=== PATIENT | female | born 1955 | race Caucasian/White ===

== ENCOUNTER 2016-06-14 20:41 | Emergency (ER) ==
[2016-06-14 20:48] VITALS: BP 157/88; TEMP 100.1; BMI 42.5
[2016-06-14 21:09] LABS: FLU INTERNAL QC INTERNAL QC VALID; RAPID FLU A NEGATIVE (NEGATIVE); RAPID FLU B NEGATIVE (NEGATIVE)
--- NOTE | 2016-06-14 21:16 | ED.PDOC ---
[id number] 6d flu symptoms with body aches, fever and cough--exposed to flu-- Time Seen by Physician: 20:45 Information Source: Patient Exam Limitations: No limitations Nursing and Triage Documentation Reviewed and Agree: Yes Respiratory Complaint Exam - Respiratory Complaint/Exam Onset/Duration: 2 days Symptoms Are: Still present Timing: Intermittent Initial Severity: Mild Current Severity: Moderate Location: Chest Character: Reports: Non-productive cough Aggravating: Reports: URI Alleviating: Reports: None Associated Signs and Symptoms: Reports: Fever, URI, Nasal congestion, Sore throat. Denies: Rapid breathing, Dyspnea, Chills, Chest pain, Pleuritic chest pain, Wheezing, Hemoptysis, Dizziness, Calf pain, Calf swelling, Edema, Hoarseness, Sinus discomfort, Vomiting, Weight loss, Decreased oral intake, Increased thirst, Increased appetite, Increased urination Related History: Reports: Similar episode History of Healthcare-Acquired Pneumonia: No Related Surgical History: Reports: None Pseudomonas Risk Factors: Reports: None Tuberculosis Risk Factors: Reports: None Status Asthmaticus Risk Factors: Reports: None Home Oxygen Use: No Recent Stress Test: No Recent Echo/LV Function: No Current Antibiotic Use: No Current Asthma Medication Use: No Respiratory Distress: None Inadequate Respiratory Effort: No Dysphagia Present: No Stridor Present: No JVD Present: No Accessory Muscle Use: No Retractions: Not Present Diminished Breath Sounds: No Sinus Tenderness: None Grunting Respirations: No Kussmaul Respirations: No Differential Diagnoses: URI, Influenza Review of Systems - Review Of Systems Constitutional: Reports: Fever Eyes: Reports: No symptoms Ears, Nose, Mouth, Throat: Reports: Throat pain Respiratory: Reports: Cough Cardiac: Reports: No symptoms GI: Reports: No symptoms : Reports: No symptoms Musculoskeletal: Reports: No symptoms Skin: Reports: No symptoms Neurological: Reports: No symptoms Endocrine: Reports: No symptoms Hematologic/Lymphatic: Reports: No symptoms All Other Systems: Reviewed and Negative Past Medical History - Past Medical History Endocrine: Reports: Unknown Cardiovascular: Reports: Unknown Respiratory: Reports: Unknown Hematological: Reports: Unknown Gastrointestinal: Reports: Unknown Genitourinary: Reports: Unknown Neuro/Psych: Reports: Unknown Musculoskeletal: Reports: Unknown Cancer: Reports: Unknown Last Menstrual Period: na - Surgical History General Surgical History: Reports: Unknown - Family History Family History: Reports: Unknown - Social History Smoking Status: Former smoker Hx Substance Use: No Alcohol Screening: Occasionally Lives: With family - Immunizations Tetanus Shot up to Date: No Physical Exam - Physical Exam Appearance: Well-appearing, No pain distress, Well-nourished Eyes: DEIDRE, EOMI, Conjunctiva clear ENT: Rhinorrhea Neck: Supple Respiratory: Rhonchi Cardiovascular: RRR, Pulses normal, No rub, No murmur GI/: Soft, Nontender, No masses, Bowel sounds normal, No Organomegaly Musculoskeletal: Normal strength, ROM intact, No edema, No calf tenderness Skin: Warm, Dry, Normal color Neurological: Sensation intact Psychiatric: Affect appropriate Critical Care Note - Critical Care Note Total Time (mins): 0 Course - Course Orders, Labs, Meds: Lab Review 06/14/16 20:50 Influenza A (Rapid) Negative Influenza B (Rapid) Negative Orders Category Date Time Status MOLECULAR GROUP A STREP Stat LAB 06/14/16 20:50 Results RAPID FLU A/B Stat LAB 06/14/16 20:50 Completed STREP SCREEN Stat LAB 06/14/16 20:50 Results Vital Signs: Temp Pulse Resp BP Pulse Ox 06/14/16 20:42 100.1 F H 95 H 20 157/88 H 95 Departure - Departure Time of Disposition: 21:16 Disposition: HOME SELF-CARE Discharge Problem: URI (upper respiratory infection) Qualifiers: URI type: unspecified viral URI Qualifier Code: (J06.9) Acute upper respiratory infection, unspecified Acute bronchitis Qualifiers: Bronchitis organism: unspecified organism Qualifier Code: (J20.9) Acute bronchitis, unspecified Instructions: Upper Respiratory Infection (ED) Condition: Good Pt referred to PMD for follow-up: Yes Additional Instructions: zpack...tessalon perles 200mg tid prn cough..tamiflu 75mg bid x 5 days--fluids - -rest--recheck in 72hrs if not bettter Allergies/Adverse Reactions: Allergies cefprozil [From Cefzil] Allergy (Severe, Verified 06/14/16 20:53) Anaphylaxis Cephalosporins Adverse Reaction (Verified 06/14/16 20:53) Home Medications: Ambulatory Orders 1 [No Reported Medications] 06/14/16 Disposition Discussed With: Patient
== END 2016-06-14 21:26 | disposition home or self-care (01) ==
LOC: ED 20:41
DX: J06.9 Acute upper respiratory infection, unspecified (principal); J20.9 Acute bronchitis, unspecified
CPT/HCPCS: 87651; 87804; 87880; 99283

== ENCOUNTER 2017-01-21 16:48 | Outpatient (CLI) ==
[2017-01-21 16:56] LABS: BASOPHILS # (AUTO) 0.1 K/uL (0-0.2); BASOPHILS % (AUTO) 0.5 % (0.0-3.0); EOSINOPHILS # (AUTO) 0.3 K/ul (0.0-0.7); EOSINOPHILS % (AUTO) 3.5 % (0.0-7.0); HEMATOCRIT 40.6 % (37.0-47.0); HEMOGLOBIN 13.3 g/dl (12.0-16.0); IMMATURE GRANULOCYTE % (AUTO) 0.2 % (0.0-5.0); LYMPHOCYTES # (AUTO) 2.9 K/uL (0.60-3.4); LYMPHOCYTES % (AUTO) 31.8 (10.0-50.0); MEAN CORPUSCULAR HEMOGLOBIN 27.7 pg (27.0-31.0); MEAN CORPUSCULAR HGB CONC 32.8 (31.8-35.4); MEAN CORPUSCULAR VOLUME 84.6 fl (81.0-99.0); MONOCYTES # (AUTO) 0.7 K/uL (0.4-2.0); MONOCYTES % (AUTO) 7.1 (0-10); NEUTROPHILS # (AUTO) 5.2 K/ul (2.0-6.9); NEUTROPHILS % (AUTO) 56.9; PLATELET COUNT 267 10^3/uL (140-440); WHITE BLOOD COUNT 9.13 K/ul (4.6-10.2)
[2017-01-21 17:35] LABS: ALBUMIN 3.7 g/dL (3.4-5.0); ALBUMIN/GLOBULIN RATIO 0.97; ANION GAP 14.1; BILIRUBIN,TOTAL 0.28 mg/dL (0.00-1.20); BUN/CREATININE RATIO 19.17; CALCIUM 9.6 mg/dL (8.2-10.2); CREATININE 0.73 mg/dL (0.60-1.30); POTASSIUM 4.1 mmol/L (3.5-5.10); TOTAL PROTEIN 7.5 g/dL (6.4-8.2)
== END 2017-01-21 16:49 | disposition home or self-care (01) ==
LOC: LAB 16:48
PROVIDERS: ATTEND Nurse Practitioner Family
DX: F41.9 Anxiety disorder, unspecified (principal)
CPT/HCPCS: 36415; 80053; 84439; 84443; 85025

== ENCOUNTER 2017-01-25 12:41 | Outpatient (CLI) ==
[2017-01-25 15:58] LABS: CHOL/HDL RATIO 3.9 (4.5-5.5)
== END 2017-01-25 12:42 | disposition home or self-care (01) ==
LOC: LAB 12:41
PROVIDERS: ATTEND Nurse Practitioner Family
DX: E75.6 Lipid storage disorder, unspecified (principal)
CPT/HCPCS: 36415; 80061

== ENCOUNTER 2017-01-26 10:21 | Outpatient (CLI) ==
--- NOTE | 2017-01-27 10:39 | MAMMO ---
EXAM: Digital screening mammogram with 3-D tomosynthesis and CAD HISTORY: Screening mammogram COMPARISON: Left breast diagnostic mammogram and ultrasound 06/26/2015 and screening mammogram 2015 FINDINGS: Bilateral CC and MLO views of the breasts were performed digitally and demonstrate scatter ed fibroglandular breast density. There is a round nodule in the right breast in the area of increase d density. The left breast parenchyma demonstrates no definitive nodule or abnormality on tomosynthe sis. IMPRESSION: The central right breast nodule RECOMMENDATION: Diagnostic right breast mammogram and ultrasound BIRADS category 0: Needs further evaluation
== END 2017-01-26 10:22 | disposition home or self-care (01) ==
LOC: RAD 10:21
PROVIDERS: ATTEND Nurse Practitioner Family
DX: R92.8 Other abnormal and inconclusive findings on diagnostic imaging of breast (principal)
CPT/HCPCS: 77067

== ENCOUNTER 2017-02-01 10:24 | Outpatient (CLI) | payer OTHER ==
--- NOTE | 2017-02-01 11:24 | MAMMO ---
EXAM: Right digital diagnostic mammogram History: Right breast nodule. Comparison: Bilateral mammogram 01/26/2017 Findings: Right breast density is scattered. CAD was reviewed by the radiologist. Additional spot c ompression views of the right breast confirm right breast nodule in question. There are no suspicious microcalcifications. Impression: Indeterminate right breast nodule. Recommend further evaluation with right breast ultra sound. BIRADS 0
--- NOTE | 2017-02-01 11:38 | US ---
EXAM: Right breast ultrasound. History: Right breast nodule. Technique: Multiple sonographic images through the right breast were obtained. Color duplex Doppler was used to interrogate vascular flow. Findings: At 9 o'clock 3 cm from nipple, there are a few small benign cysts with the largest measurin g 4 mm. These probably correlate with mammography. Impression: Benign right breast cysts. Recommend return to routine screening mammography schedule. BIRADS 2
== END 2017-02-01 10:25 | disposition home or self-care (01) ==
LOC: RAD 10:24
PROVIDERS: ATTEND Nurse Practitioner Family
DX: R92.8 Other abnormal and inconclusive findings on diagnostic imaging of breast (principal)

== ENCOUNTER 2017-04-16 16:28 | Outpatient (CLI) ==
--- NOTE | 2017-04-16 16:47 | DI ---
EXAM: Three views of the thoracic spine HISTORY: Back pain. COMPARISON: None FINDINGS: There is no acute compression fracture or subluxation. There is multilevel scattered degen erative change with osteophyte formation and disc space narrowing. There is no lytic or blastic lesi on. The soft tissues are normal. IMPRESSION: There is scattered degenerative disease of the thoracic spine.
== END 2017-04-16 16:29 | disposition home or self-care (01) ==
LOC: LAB 16:28
PROVIDERS: ATTEND Nurse Practitioner Family
DX: M54.6 Pain in thoracic spine (principal); E03.9 Hypothyroidism, unspecified
CPT/HCPCS: 36415

== ENCOUNTER 2017-06-24 12:20 | Outpatient (CLI) | END 2017-06-24 12:21 | disposition home or self-care (01) | LOC: FCC-LAB 12:20 | PROVIDERS: ATTEND Nurse Practitioner Family | DX: F32.9 Major depressive disorder, single episode, unspecified (principal); E03.9 Hypothyroidism, unspecified | CPT/HCPCS: 36415; 80053; 80061; 84439; 84443; 85025 ==

== ENCOUNTER 2017-08-30 08:29 | Emergency (ER) ==
[2017-08-30 08:33] VITALS: BP 166/96; TEMP 98.9; BMI 44.2
[2017-08-30] MEDS ORDERED: DUONEB NEB STA (08:44)
--- NOTE | 2017-08-30 09:03 | ED.PDOC ---
General ED Provider: Dr. ADDY ALVAREZ MD Chief Complaint: Respiratory Complaint Stated Complaint: shortness of breath Time Seen by Physician: 08:50 Mode of Arrival: Wheelchair Information Source: Patient Exam Limitations: No limitations Primary Care Provider: WHIT CASILLAS Referred to ED by: Other Nursing and Triage Documentation Reviewed and Agree: Yes Reviewed sepsis parameters & appropriate labs ordered?: Yes (not septic) System Inflammatory Response Syndrome: Not Applicable Sepsis Protocol: For patient's 13 years and over: Temp is 96.8 and below OR 101 and greater Pulse >90 BPM Resp >20/minute Acutely Altered Mental Status Are patient's symptoms suggestive of a new infection, such as: -Pneumonia -Skin, Soft Tissue -Endocarditis -UTI -Bone, Joint Infection -Implantable Device -Acute Abdominal Infection -Wound Infection -Meningitis -Blood Stream Catheter Infection -Unknown Respiratory Complaint Exam - Asthma Complaint/Exam Onset/Duration: one hour Symptoms Are: Still present Timing: Intermittent Initial Severity: Mild Current Severity: Moderate Character: Reports: Non-productive cough Aggravating: Reports: Allergens Alleviating: Reports: Steroids Related History: Reports: Similar episode (treated 2 weeks ago after mold exposuer) Status Asthmaticus Risk Factors: Reports: Recent steriods Review of Systems - Review Of Systems Constitutional: Reports: No symptoms Eyes: Reports: No symptoms Ears, Nose, Mouth, Throat: Reports: No symptoms Respiratory: Reports: Cough, Short of air Cardiac: Reports: No symptoms GI: Reports: No symptoms : Reports: No symptoms Musculoskeletal: Reports: No symptoms Skin: Reports: No symptoms Neurological: Reports: No symptoms Endocrine: Reports: No symptoms Hematologic/Lymphatic: Reports: No symptoms All Other Systems: Reviewed and Negative Past Medical History - Past Medical History Endocrine: Reports: Unknown Cardiovascular: Reports: Unknown Respiratory: Reports: Bronchitis, Unknown Hematological: Reports: Unknown Gastrointestinal: Reports: Unknown Genitourinary: Reports: Unknown Neuro/Psych: Reports: Unknown Musculoskeletal: Reports: Unknown Cancer: Reports: Unknown Last Menstrual Period: n/a - Surgical History General Surgical History: Reports: Unknown - Family History Family History: Reports: Unknown - Social History Smoking Status: Former smoker Hx Substance Use: No Alcohol Screening: Occasionally Physical Exam - Physical Exam Appearance: Ill-appearing Ill-appearing: Mild Pain Distress: None Eyes: DEIDRE, EOMI, Conjunctiva clear ENT: Ears normal, Nose normal, Oropharynx normal Neck: Supple Respiratory: Breath sounds clear Cardiovascular: RRR, Pulses normal, No rub, No murmur GI/: Soft, Nontender, No masses, Bowel sounds normal, No Organomegaly Musculoskeletal: Normal strength, ROM intact, No edema, No calf tenderness Skin: Warm, Dry, Normal color Neurological: Sensation intact, Motor intact, Reflexes intact, Cranial nerves intact, Alert, Oriented Re-Evaluation - Re-Evaluation Time of Re-Evaluation: 09:30 (feeling better 99%) Status: Improved Vital Signs Stable: Yes Lungs: Clear Skin: Warm and Dry CV: RRR Critical Care Note - Critical Care Note Total Time (mins): 0 Course - Course Hematology/Chemistry: 08/30/17 08:50 08/30/17 08:50 Orders, Labs, Meds: Lab Review 08/30/17 08/30/17 08:50 08:50 WBC 11.82 H RBC 4.60 Hgb 12.9 Hct 39.5 MCV 85.9 MCH 28.0 MCHC 32.7 RDW Coeff of Derick 13.1 Plt Count 256 Immature Gran % (Auto) 0.5 Neut % (Auto) 65.1 Lymph % (Auto) 23.5 [place] % (Auto) 7.5 Eos % (Auto) 3.0 Baso % (Auto) 0.4 Immature Gran # (Auto) 0.1 Neut # (Auto) 7.7 H Lymph # (Auto) 2.8 [place] # (Auto) 0.9 Eos # (Auto) 0.4 Baso # (Auto) 0.1 Sodium 139 Potassium 3.8 Chloride 104 Carbon Dioxide 25 Anion Gap 13.8 BUN 12 Creatinine 0.73 Estimated GFR (MDRD) 81.00 BUN/Creatinine Ratio 16.43 Glucose 105 Calcium 8.8 Iron 36 L TIBC 305 % Saturation 12 Unsat Iron Binding 269 Total Bilirubin 0.5 AST 13 L ALT 13 Alkaline Phosphatase 102 Total Protein 7.3 Albumin 3.4 Globulin 3.9 Albumin/Globulin Ratio 0.87 Orders Category Date Time Status NEBULIZER TREATMENT Stat CARDIO 08/30/17 08:44 Completed CBC W/ AUTO DIFF Stat LAB 08/30/17 08:50 Completed COMPREHENSIVE METABOLIC PANEL Stat LAB 08/30/17 08:50 Completed IRON AND TIBC Stat LAB 08/30/17 08:50 Completed Ipratropium/Albuterol Neb [Duoneb] MEDS 08/30/17 08:44 Discontinued 1 vial NEB ONCE STA CXR [CHEST, 2 VIEWS PA & LAT] Stat RADS 08/30/17 08:42 Completed Medications Discontinued Medications Generic Name Dose Route Start Last Admin Trade Name Erica PRN Reason Stop Dose Admin Albuterol/Ipratropium 1 vial 08/30/17 08:44 08/30/17 08:52 Duoneb NEB 08/30/17 08:45 1 vial ONCE STA Administration Vital Signs: Temp Pulse Resp BP Pulse Ox 08/30/17 08:30 98.9 F 93 H 24 166/96 H 93 L pulse ox later 99%, states she feels a lot better Departure - Departure Time of Disposition: 10:10 Disposition: HOME SELF-CARE Discharge Problem: Asthma due to environmental allergies, Anemia, iron deficiency Condition: Good Pt referred to PMD for follow-up: Yes IPMP verified?: No Allergies/Adverse Reactions: Allergies cefprozil [From Cefzil] Allergy (Severe, Verified 08/30/17 08:33) Anaphylaxis Cephalosporins Adverse Reaction (Verified 08/30/17 08:33) Penicillins Adverse Reaction (Verified 08/30/17 08:33) Home Medications: Ambulatory Orders Citalopram Hydrobromide [Celexa] 20 mg PO DAILY 08/17/17
--- NOTE | 2017-08-30 09:22 | DI ---
EXAM: Two views of the chest. History: Short of breath Findings: Heart size is within normal limits. Medial right lower hemithorax opacity. No appreciable pleural fluid and no pneumothorax. No acute osseous abnormalities. Impression: Indeterminate medial right lower hemithorax opacity could represent pericardial fat pad but cannot exclude pneumonia or mass. Recommend further evaluation with contrast enhanced chest CT.
== END 2017-08-30 10:14 | disposition home or self-care (01) ==
LOC: ED 08:29
DX: J45.998 Other asthma (principal); D50.9 Iron deficiency anemia, unspecified
CPT/HCPCS: 36415; 80053; 83540; 83550; 85025; 94640; 99283

== ENCOUNTER 2017-09-22 09:52 | Outpatient (CLI) | payer OTHER ==
--- NOTE | 2017-09-22 10:56 | CT ---
EXAM: CT Chest with and without contrast. HISTORY: Abnormal chest radiograph. COMPARISON: 08/30/2017. TECHNIQUE: Multiple axial images of the chest were obtained prior to and following intravenous admin istration of iodinated contrast, low osmolar. Images were reformatted in the sagittal and coronal pl anes. FINDINGS: A 2.2 x 1.8 x 2.5 cm homogeneous fluid density nodule in the anterior mediastinum on axial image 20 and sagittal image 56 of the postcontrast series is present. Heart size is normal. No per icardial effusion identified. There is prominent right epicardial fat best seen on axial image 35 wh ich accounts for the recent radiographic abnormality. No consolidation, pleural effusion or pneumothorax identified. There is a 0.3 cm right lower lobe no dule on axial image 26. Limited images of the upper abdomen demonstrate multiple fluid density hepatic lesions, with the larg est measuring up to 2.6 cm in the lateral left lobe on axial image 43. Gallbladder is absent.. Osse ous structures are within normal limits for the patient's age IMPRESSION: 1. Prominent epicardial fat which accounts for the recent radiographic abnormality. 2. A 2.2 x 1.8 x 2.5 cm cystic mass in the anterior mediastinum, possibly a thymic cyst. Consider c hest MRI for further evaluation. 3. A 0.3 cm right lower lobe micronodule. Consider follow-up chest CT in 12 months for reassessment . 4. Multiple hepatic cysts.
== END 2017-09-22 09:53 | disposition home or self-care (01) ==
LOC: RAD 09:52
PROVIDERS: ATTEND Nurse Practitioner Family
DX: R93.8 Abnormal findings on diagnostic imaging of other specified body structures (principal)

== ENCOUNTER 2017-09-23 11:35 | Outpatient (CLI) | payer OTHER | END 2017-09-23 11:36 | disposition home or self-care (01) | LOC: LAB 11:35 | PROVIDERS: ATTEND Nurse Practitioner Family | DX: E32.8 Other diseases of thymus (principal); K76.89 Other specified diseases of liver | CPT/HCPCS: 36415; 80074; 82150; 82977; 83690 ==

== ENCOUNTER 2017-10-15 06:45 | Outpatient (CLI) ==
--- NOTE | 2017-10-15 11:27 | NM ---
EXAM: Myocardial perfusion imaging HISTORY: Chest pain COMPARISON: None. TECHNIQUE: Patient was injected 12.1 mCi of Tc99m Sestamibi intravenously while at rest.. Cardiac SPE CT was acquired. Patient was stressed on a treadmill and at peak exercise injected 31 mCi of Tc99m S estamibi intravenously. Another SPECT imaging of the heart was acquired. Gated cardiac study was pe rformed. FINDINGS: Post stress images show normal left ventricular cavity size. There is a focal area of redu tommy perfusion in the mid anterior wall. This shows no reperfusion on delayed imaging. This is most likely breast attenuation artifact. Myocardial perfusion is otherwise homogeneous. There is no evid ence of reversible ischemia. Left ventricular ejection fraction is 81% and wall motion is normal. IMPRESSION: 1. SPECT myocardial imaging shows no evidence of reversible ischemia 2. Breast attenuation artifact mid-anterior wall. 3. Normal cardiac systolic function and normal wall motion.
--- NOTE | 2017-10-15 12:39 | ECHOSTRESS ---
Date of Exam: 10/15/17 Ordering Physician: WHIT CASILLAS APRN Reason for Echo: HTN, CHEST PAIN, FUNCTIONAL MURMUR, STRESS TEST --NO ISCHEMIA M-Mode Normal Adult Results LV Dimensions Normal Adult Results AoV Opening excursions >1.6 LVEDD-base- 3.5-5.8 Ao root dimensions 2.0-3.7 LVESD-base- 3.1-4.6 L. Atrium dimensions 1.9-3.8 Post. Wall thickness 0.8-1.1 IV septum (thickness) 0.7-1.2 Post. Wall excursion 0.72-1.3 Septal motion Systolic motion R. Ventricular cavity 1.5-2.0 LVEF 60% Paradoxical septal wall motion 2-D: NORMAL LEFT VENTRICULAR CONTRACTILITY--RESTING AND POST EXERCISE M-MODE: MV: AV: TV: PV: CHAMBER SIZE: WALL MOTION: NORMAL LEFT VENTRICULAR CONTRACTILITY--RESTING AND POST EXERCISE PERICARDIUM: INTERPRETATION: 1. NORMAL LEFT VENTRICULAR CONTRACTILITY--RESTING AND POST EXERCISE MTDD
--- NOTE | 2017-10-15 12:53 | STECHOSEST ---
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 MURMUR Smoking History: NO Height: 63" Weight: 254 LBS Current Medications: SYNTHROID, LEVOTHYROXINE, CELEXA Resting EKG: SINUS RHYTHM/ NO ACUTE CHANGES Target Heart Rate: 136/160 S-T SEGMENT STAGE MPH/GRADE HEART RATE BPM BLOOD PRESSURE mmhg RHYTHM +/- ELEVATION DEPRESSION SYMPTOMS,COMMENTS At Rest 80 118/68 SR X NONE 1 1.7/10% 123 128/72 SR X NONE 2 2.5/12% 3 3.4/14% 4 4.2/16% 5 5.0/18% Immediately after 148 SR X SHORT OF BREATH Minutes Post Exercise 4:00 88 122/70 SR X NO COMMENTS Minutes Post Exercise Total Time: 4:01 Maximum Heart Rate Reached: 148 BPM Reason for Termination: SHORT OF BREATH 97% Oxygen saturation on room air with exercises Mets 7.0 INTERPRETATION 1. NO EVIDENCE OF ISCHEMIA BY ST-T WAVE 2. NO CHEST PAIN OR CHEST DISCOMFORT 3. BLOOD PRESSURE RESPONSE: NORMAL 4. NO ARRHYTHMIAS NORMAL LEFT VENTRICULAR CONTRACTILITY--RESTING AND POST EXERCISE MTDD
== END 2017-10-15 06:46 | disposition home or self-care (01) ==
LOC: CAR 06:45
PROVIDERS: ATTEND Nurse Practitioner Family
DX: R07.89 Other chest pain (principal); R93.8 Abnormal findings on diagnostic imaging of other specified body structures; I10 Essential (primary) hypertension

== ENCOUNTER 2018-02-22 14:20 | Outpatient (CLI) ==
--- NOTE | 2018-02-23 10:39 | MAMMO ---
EXAM: Bilateral digital screening mammogram (2-D and 3-D) History: Screening Comparison: Bilateral mammogram 01/26/2017 Findings: MLO and CC views of bilateral breasts demonstrate scattered fibroglandular breast parenchy ma. There are no dominant masses, no suspicious microcalcifications and no architectural distortions . CAD was reviewed by the radiologist. Tomosynthesis was performed. Stable benign bilateral breast nodules. Impression: Benign stable mammogram. Recommend followup routine screening mammography in 1 year. BIRADS 2
== END 2018-02-22 14:21 | disposition home or self-care (01) ==
LOC: RAD 14:20
PROVIDERS: ATTEND Family Medicine
DX: Z12.31 Encounter for screening mammogram for malignant neoplasm of breast (principal)
CPT/HCPCS: 77067

== ENCOUNTER 2018-03-10 07:31 | Outpatient (CLI) | END 2018-03-10 07:32 | disposition home or self-care (01) | LOC: CAR 07:31 | PROVIDERS: ATTEND Family Medicine | DX: Z68.42 Body mass index [BMI] 45.0-49.9, adult (principal) | CPT/HCPCS: 93005; 93010 ==

== ENCOUNTER 2018-07-10 07:34 | Outpatient (CLI) | payer OTHER ==
--- NOTE | 2018-07-10 08:30 | DI ---
Exam: Three-view right foot. Date: 07/10/2018. Comparison: None. HISTORY: Right foot pain. FINDINGS: The soft tissues are within normal limits. The mineralization is normal. The calcaneal s pur is present. The bones are intact and the joint spaces are preserved. Impression: No acute osseous abnormality in the right foot. Calcaneal spur.
== END 2018-07-10 07:35 | disposition home or self-care (01) ==
LOC: RAD 07:34
PROVIDERS: ATTEND Nurse Practitioner Family
DX: M79.671 Pain in right foot (principal)

== ENCOUNTER 2018-07-29 11:00 | Outpatient (RCR) ==
--- NOTE | 2018-07-19 08:35 | RS.OPPTEV2 ---
Date of Note: 07/18/18 Visit #: 1 Number of visits approved by Insurance: n/a Date of Evaluation: 07/18/18 Payer Source: Insurance Surgery Performed?: No Treatment Diagnosis: calcaneal spur, R ankle pain in area of achilles, calcaneal bursitis History of Condition/Mechanism of Injury:: pt initially injured R ankle in 2012 stepping in hole and would get better and worse. Prior Level of Function.....Patient was independent with: ADL's, Self Care, Work /Vocation, Caregiving, Ambulation/Mobility, Community Integration/Access Functional Limitations: Standing, Squatting, Ambulation, Community Access/ Integration Current Subjective/complaints:: pt states that she has been hurting more recently which is limiting her ability to walk longer distances. Treatment Side (optional): Right *Precautions: n/a Medical History Medical History: Cancer (skin CA) Surgical History: Cholecystectomy, Tonsillectomy, Hysterectomy Surgical History Comments:: appey Smoking Status: Former smoker Diagnostic Testing/Imaging:: xray of R foot/ankle shows calcaneal spur Hx Home Medications: aleve, zantac, synthroid, vesicare Patient's Goals: decrease pain, be able to walk without limp Pain Assessment - Pain Description Pain Location: R ankle in area of achilles especially at area of insertion Pain Description: Burning, Sharp, Aching Current Pain Intensity: 3 Other Comments regarding Pain:: pt has been off work last 4 days so her pain is not as bad and swelling is less. Functional Outcome Measure LE Functional Scale: 44 - G Codes & Severity Modifier G Codes & Modifier: n/a Source of G Code score: n/a Observation - Observation Inspection: small area of swelling in area of achilles at area of insertion Posture: Forward Head, Rounded Shoulders, Increased Thoracic Kyphosis, Decreased Lumbar Lordosis Handedness: Right Gait - Gait Pattern General Gait Pattern Observation: Antalgic Gait Gait Comments: pt amb with antalgic gait with decreased stance time on RLE. pt also amb with increased lat sway. General Range of Motion: BUE WFL's. BLE WFL's Muscle Strength: BUE grossly 5/5. BLE hip flex 5/5, knee flex/ext 5/5, L ankle DF/PF 5/5, Ankle ROM: Left WFL's Ankle Muscle Strength: Left WFL's - Right Ankle ROM Right DF with Knee extension: 5 Right Plantarflexion: 28 Right Eversion: 19 Right Inversion: 22 Right Ankle/Foot ROM Limitations: Soft Tissue Tightness, Muscle Weakness, Pain - Right Ankle Strength Right Dorsiflexion: 4- Good- Right Plantarflexion: 4- Good- Right Eversion: 4- Good- Right Inversion: 4- Good- Palpation Palpation Findings: Tenderness Comments:: pt with tenderness to palpation R achilles especially at area of insertion Sensation - Sensation Right Upper Extremity: Intact/Normal Left Upper Extremity: Intact/Normal Right Lower Extremity: Intact/Normal Left Lower Extremity: Intact/Normal Balance - Sitting Balance Static Sitting Balance: Normal Dynamic Sitting Balance: Normal - Standing Balance Static Standing Balance: Normal Dynamic Standing Balance: Normal - Treatment Modality: Ultrasound Parameters/Method Applied: 1.5 w/cm2 x 7 mins Treatment Area: R achilles/post ankle Patient Position: Sitting Interventions - Exercise/Activities/Manual Therapy Exercises/Activities: pt performed R ankle isometric DF, PF, inversion, eversion , PF with green t band, towel stretch Manual Therapy: n/a HOME EXERCISE PROGRAM: pt given written HEP including PF, DF, inversion, eversion, PF with green theraband, heel cord stretch - Charges Timed Code Treatment Minutes: 51 Total Treatment Time: 60 Procedures billed for this date of service:: poonam skaggs, ultrasound EVALUATION COMPLEXITY LEVEL EVALUATION COMPLEXITY LEVEL: HISTORY: Low (OA, ), EXAM OF BODY SYSTEMS: Low ( pain, ROM, strength), CLINICAL PRESENTATION: Low, CLINICAL DECISION MAKING: Low Assessment Assessment: pt presents with pain in R ankle in area of achilles with decreased ROM, strength as well as min edema. Patient Education: Home Exercise Program, Education of Plan of Care Rehab Potential: Good Short Term Goals Goal #1: pt independent with initial HEP Goal to be met by: 08/01/18 Goal #2: Improve ROM R ankle to WFL's Goal to be met by: 08/01/18 Goal #3: Decrease edema R ankle Goal to be met by: 08/01/18 Goal #4: Decrease pain R ankle < 3/10 Goal to be met by: 08/01/18 Bacteriology Research Assistant Goals Goal #1: pt amb with decreased antalgic gait pattern Goal to be met by: 08/19/18 Goal #2: pt report decreased pain with working normal shift Goal to be met by: 08/19/18 Plan - Treatment to be Provided Procedures: Therapeutic Exercises, Manual Therapy, Massage, Patient Education Modalities: Ultrasound/Phonophoresis, Cryotherapy, Hot Packs Other:: may benefit from phonophoresis - Treatment Plan Frequency: 2-3 x a week Duration: 4 weeks Dates of Bacteriology Research Assistant Goals: 08/19/18 Expiration date of current Insurance Approval:: n/a - Treatment Code (1) Pain in right ankle Code(s): M25.571 - PAIN IN RIGHT ANKLE AND JOINTS OF RIGHT FOOT Qualifiers: Chronicity: chronic Qualified Code(s): M25.571 - Pain in right ankle and joints of right foot; G89.29 - Other chronic pain (2) Calcaneal bursitis, right Code(s): M77.51 - OTHER ENTHESOPATHY OF RIGHT FOOT (3) Stiffness of right ankle joint Code(s): M25.671 - STIFFNESS OF RIGHT ANKLE, NOT ELSEWHERE CLASSIFIED
--- NOTE | 2018-07-22 14:05 | RS.OPPTDN ---
Subjective Date of Note: 07/21/18 Visit #: 2 Number of visits approved by Insurance: pending Date of Evaluation: 07/18/18 Payer Source: Insurance Treatment Diagnosis: calcaneal spur, R ankle pain in area of achilles, calcaneal bursitis Current Subjective/complaints:: Patient reports pain at the insertion of the right achilles tendon. *Precautions: n/a Pain Assessment - Pain Description Pain Location: right achilles tendon Pain Description: Burning, Sharp, Aching Current Pain Intensity: mild to mod - Treatment Modality: Ultrasound Parameters/Method Applied: [id number] at 1.5w/cm2 to the right achilles tendon prior to EX. Patient Position: Sitting - Heat/Cryotherapy Treatment: Cryotherapy ([id number] to the right achilles tendon following US and EX. Patient in sitting. ) Interventions - Exercise/Activities/Manual Therapy Exercises/Activities: Assisted stretching of the right heel cords and ankle in all direction. Manual resistance for Isometrics x4 directions. Reviewed towel stretch. Also instructed in step stretch and wall/runner's stretch, both for gastroc and soleus. Total minutes of Exercise: 14mins Manual Therapy: Massage along heel cords and gastroc. Total minutes of Manual Therapy: 3mins HOME EXERCISE PROGRAM: pt given written HEP including PF, DF, inversion, eversion, PF with green theraband, heel cord stretch - Charges Timed Code Treatment Minutes: 27mins Total Treatment Time: 42mins Procedures billed for this date of service:: US, EX, CP Assessment: Patient continue to have increased pain and walking and with passive stretch of the right heel cords. 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
--- NOTE | 2018-07-25 13:00 | RS.OPPTDN ---
Subjective Date of Note: 07/25/18 Visit #: 3 Number of visits approved by Insurance: NA Date of Evaluation: 07/18/18 Payer Source: Insurance Treatment Diagnosis: calcaneal spur, R ankle pain in area of achilles, calcaneal bursitis Current Subjective/complaints:: Patient reports an increase in right heel pain at the achilles insersion following last treatment session. States she does not like the cold, but is willing to continue to try US to decrease pain. *Precautions: n/a Pain Assessment - Pain Description Pain Location: Right achilles tendon insersion Pain Description: Aching Current Pain Intensity: mild to mod - Treatment Modality: Ultrasound Parameters/Method Applied: [id number] at 1.5w/cm2 along both sides of the right achilles tendon. Patient Position: Sitting - Heat/Cryotherapy Treatment: Hot Pack ([id number] to the right achilles tendon prior to US. Patient in sitting. ) Interventions - Exercise/Activities/Manual Therapy Exercises/Activities: Assisted stretching of the right heel cords and ankle in all direction. Manual resistance for Isometrics x4 directions. Reviewed HEP and advised patient to do Epsom salt and warm water soaks. Total minutes of Exercise: 14mins Manual Therapy: Massage along heel cords and gastroc. Total minutes of Manual Therapy: 3mins HOME EXERCISE PROGRAM: pt given written HEP including PF, DF, inversion, eversion, PF with green theraband, heel cord stretch - Charges Timed Code Treatment Minutes: 31mins Total Treatment Time: 51mins Procedures billed for this date of service:: HP, US, EX Assessment: Patient consistently working on HEP and has seen some improvement in pain. Patient Education: Home Exercise Program Patient demonstrates compliance with HEP?: Yes Short Term Goals Goal #1: pt independent with initial HEP Goal to be met by: 08/01/18 Progress towards Goal:: Progressing Goal #2: Improve ROM R ankle to WFL's Goal to be met by: 08/01/18 Progress towards Goal:: Progressing Goal #3: Decrease edema R ankle Goal to be met by: 08/01/18 Progress towards Goal:: Progressing Goal #4: Decrease pain R ankle < 3/10 Goal to be met by: 08/01/18 Jail Goals Goal #1: pt amb with decreased antalgic gait pattern Goal to be met by: 08/19/18 Goal #2: pt report decreased pain with working normal shift Goal to be met by: 08/19/18 Plan Dates of Battery Hand Goals: 08/19/18 Expiration date of current Insurance Approval:: 08/19/18 PLAN: Continue modalities and progress exercise to redcue pain and improve patients functional ambulation.
--- NOTE | 2018-07-26 16:40 | RS.OPPTDN ---
Subjective Date of Note: 07/26/18 Visit #: 4 Number of visits approved by Insurance: [id number] Date of Evaluation: 07/18/18 Payer Source: Insurance Treatment Diagnosis: calcaneal spur, R ankle pain in area of achilles, calcaneal bursitis Current Subjective/complaints:: Patient says her pain remains unchanged. She says she no longer has "plantar fasciitis pain," but soreness to the insertion points of the achilles. She says she doesn't really notice any swelling. States she takes Aleve for pain, which helps relieve a little. *Precautions: n/a - Treatment Modality: Ultrasound Parameters/Method Applied: PHONOPHORESIS: Pulsed using hydrocortisone cream @ 20% 0.8 w/cm2 x 14 mins to bilateral achilles insertion points Patient Position: Sitting - Heat/Cryotherapy Treatment: Hot Pack (20 mins surrounding the R achilles tendon in sitting.) Interventions - Exercise/Activities/Manual Therapy Exercises/Activities: Continued passive stretching of the right heel cords and ankle in all direction. Great toe stretching. Manual resistance for Isometrics x4 directions x 2 sets. Reviewed HEP and advised patient to do Epsom salt and warm water soaks. Total minutes of Exercise: 15 Manual Therapy: Massage along heel cords and gastroc. HOME EXERCISE PROGRAM: pt given written HEP including PF, DF, inversion, eversion, PF with green theraband, heel cord stretch - Charges Timed Code Treatment Minutes: 29 Total Treatment Time: 49 Procedures billed for this date of service:: hp, u/s, ex Assessment: Patient admits slight improvement with pain today following session. She is unclear if it is due to having 2 sessions in a row, being off from work, or addition of phonophoresis. No real evidence of swelling noted to the medial aspect of the R foot in which she points out used to be present. She will also be attending PT tomorrow also in which hydrocortisone may be used to further decrease her pain. She rivas all stretching well and continues to work on HEP. 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
--- NOTE | 2018-07-29 16:18 | RS.OPPTDN ---
Subjective Date of Note: 07/29/18 Visit #: 5 Number of visits approved by Insurance: na Date of Evaluation: 07/18/18 Payer Source: Insurance Treatment Diagnosis: calcaneal spur, R ankle pain in area of achilles, calcaneal bursitis Current Subjective/complaints:: Patient reports she has little to no pain at right achilles with working yesterday. Reports treatment seems to be helping her a lot. *Precautions: n/a Pain Assessment - Pain Description Pain Location: right achilles tendon insertion points Current Pain Intensity: mild - Treatment Modality: Ultrasound Parameters/Method Applied: [id number] at 1.5w/cm2 along both side of the achilles tendon with hydrocortisone for phonophoresis prior to EX. Patient Position: Sitting - Heat/Cryotherapy Treatment: Hot Pack ([id number] to the right ankle, achilles tendon prior to US. patient in sitting. ) Interventions - Exercise/Activities/Manual Therapy Exercises/Activities: Manual resistance for isometrics x4 directions and discussion of HEP. Total minutes of Exercise: 4mins Manual Therapy: Massage along heel cords and gastroc with passive stretching of heel cords and plantar fascia. Total minutes of Manual Therapy: 20mins HOME EXERCISE PROGRAM: pt given written HEP including PF, DF, inversion, eversion, PF with green theraband, heel cord stretch - Charges Timed Code Treatment Minutes: 34mins Total Treatment Time: 49mins Procedures billed for this date of service:: HP, US, MT Assessment: Patient responding well to treatment with report of having little to no pain with work yesterday. Patient Education: Home Exercise Program, Activity Modification Patient demonstrates compliance with HEP?: Yes Short Term Goals Goal #1: pt independent with initial HEP Goal to be met by: 08/01/18 Progress towards Goal:: Progressing Goal #2: Improve ROM R ankle to WFL's Goal to be met by: 08/01/18 Progress towards Goal:: Progressing Goal #3: Decrease edema R ankle Goal to be met by: 08/01/18 Progress towards Goal:: Progressing Goal #4: Decrease pain R ankle < 3/10 Goal to be met by: 08/01/18 Progress towards Goal:: Progressing Fpc Goals Goal #1: pt amb with decreased antalgic gait pattern Goal to be met by: 08/19/18 Goal #2: pt report decreased pain with working normal shift Goal to be met by: 08/19/18 Progress towards goal: Progressing Plan Dates of [facility] Goals: 08/19/18 Expiration date of current Insurance Approval:: 08/19/18 PLAN: Continue modalities, manual therapy, and exercise to increase functional activity level.
== END 2018-07-31 23:59 ==
PROVIDERS: ATTEND Nurse Practitioner Family
DX: M77.51 Other enthesopathy of right foot and ankle (principal)

== ENCOUNTER 2018-08-19 11:00 | Outpatient (RCR) ==
--- NOTE | 2018-08-01 16:13 | RS.OPPTDN ---
Subjective Date of Note: 08/01/18 Visit #: 6 Number of visits approved by Insurance: n/a Date of Evaluation: 07/18/18 Payer Source: Insurance Treatment Diagnosis: calcaneal spur, R ankle pain in area of achilles, calcaneal bursitis Current Subjective/complaints:: pt states she noticed the other day that she was walking and did not have any pain. States she feels the PT is helping. *Precautions: n/a Pain Assessment - Pain Description Pain Location: R achilles. Pain Description: Aching Current Pain Intensity: 0 at rest , 2 with walking - Treatment Modality: Ultrasound Parameters/Method Applied: 10 mins at 1.5w/cm2 phonophoresis with hydrocortisone Treatment Area: R achilles (medial and lat side) Patient Position: Sitting Comments: prior to stretching - Heat/Cryotherapy Treatment: Hot Pack Comments:: R ankle, prior to ultrasound x 15 mins Interventions - Exercise/Activities/Manual Therapy Exercises/Activities: pt performed R ankle isometric DF, PF, inversion, eversion. Stretching of R heel cords Manual Therapy: massage to R ankle, with deep tissue massage R post ankle in area of achilles. HOME EXERCISE PROGRAM: pt given written HEP including PF, DF, inversion, eversion, PF with green theraband, heel cord stretch - Charges Timed Code Treatment Minutes: 36 Total Treatment Time: 51 Procedures billed for this date of service:: ultrasound, hot pack, manual therapy Assessment: pt with decreased edema R ankle, with decreased pain in R achilles. pt with decreased tightness in R heel cord. pt has met STG 1, 3, 4. 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
--- NOTE | 2018-08-04 16:16 | RS.OPPTDN ---
Subjective Date of Note: 08/04/18 Visit #: 7 Number of visits approved by Insurance: na Date of Evaluation: 07/18/18 Payer Source: Insurance Treatment Diagnosis: calcaneal spur, R ankle pain in area of achilles, calcaneal bursitis Current Subjective/complaints:: Patient reports a mild area of swelling at the sital lateral achilles tendon insertion. Reports she is doing much better with walking at work. *Precautions: n/a Pain Assessment - Pain Description Pain Location: right achilles tendon insertion Current Pain Intensity: mild - Treatment Modality: Ultrasound Parameters/Method Applied: 14mins total. US at 1.5w/cm2 to each side of the right ankle achilles tendon insersion, 7mins to each side. Patient Position: Sitting - Heat/Cryotherapy Treatment: Hot Pack ([id number] to the right achilles tendon insertion prior to US and MT. Patient in sitting. ) Interventions - Exercise/Activities/Manual Therapy Exercises/Activities: No new additions Manual Therapy: Massage to R ankle, with deep tissue massage along achilles and gastroc muscle group. Passive stretch of plantar fascia. Total minutes of Manual Therapy: 18mins HOME EXERCISE PROGRAM: pt given written HEP including PF, DF, inversion, eversion, PF with green theraband, heel cord stretch - Charges Timed Code Treatment Minutes: 32mins Total Treatment Time: 52mins Procedures billed for this date of service:: HP, US, MT Assessment: Patient reporting improvement with ability to walk for work. Patient demonstrates compliance with HEP?: Yes Short Term Goals Goal #1: pt independent with initial HEP Goal to be met by: 08/01/18 Progress towards Goal:: Met Goal #2: Improve ROM R ankle to WFL's Goal to be met by: 08/01/18 Progress towards Goal:: Partially Met Goal #3: Decrease edema R ankle Goal to be met by: 08/01/18 Progress towards Goal:: Met Goal #4: Decrease pain R ankle < 3/10 Goal to be met by: 08/01/18 Progress towards Goal:: Met Mcfp Goals Goal #1: pt amb with decreased antalgic gait pattern Goal to be met by: 08/19/18 Progress towards goal: Progressing Goal #2: pt report decreased pain with working normal shift Goal to be met by: 08/19/18 Progress towards goal: Progressing Plan Dates of [facility] Goals: 08/19/18 Expiration date of current Insurance Approval:: 08/19/18 PLAN: Continue modalities, manual therapy, and exercise to reduce pain and increase functional gait and activity level.
--- NOTE | 2018-08-08 14:22 | RS.OPPTDN ---
Subjective Date of Note: 08/08/18 Visit #: 8 Number of visits approved by Insurance: [id number] Date of Evaluation: 07/18/18 Payer Source: Insurance Treatment Diagnosis: calcaneal spur, R ankle pain in area of achilles, calcaneal bursitis Current Subjective/complaints:: Patient says her pain is much better. Reports pain continues to be little to none at work. She says she feels she has a little swelling at the medial malleoli. *Precautions: n/a - Treatment Modality: Ultrasound Parameters/Method Applied: phonophoresis using hydrocortisone cream to the R medial/lateral heel cords and at the medial malleoli region. 1.5 w/cm2 continuous, then pulsed 20% 0.6 w/cm2 x 14 mins total. Patient Position: Sitting - Heat/Cryotherapy Treatment: Hot Pack (15 mins to the heel cords in sitting) Interventions - Exercise/Activities/Manual Therapy Exercises/Activities: No new additions Manual Therapy: Massage to R ankle, with deep tissue massage along achilles and gastroc muscle group. Passive stretch of plantar fascia. Total minutes of Manual Therapy: 17 HOME EXERCISE PROGRAM: pt given written HEP including PF, DF, inversion, eversion, PF with green theraband, heel cord stretch - Charges Timed Code Treatment Minutes: 31 Total Treatment Time: 46 Procedures billed for this date of service:: hp, u/s, MT Assessment: Patient experiencing less pain with ambulation and during her shifts at work. In fact, experiencing no pain as of recent. She demo slight swelling at beginning of treatment, which is not present following u/s and MT. Patient remains positive about progress during treatments and compliant with HEP. 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
--- NOTE | 2018-08-12 16:02 | RS.OPPTDN ---
Subjective Date of Note: 08/12/18 Visit #: 9 Number of visits approved by Insurance: [id number] Date of Evaluation: 07/18/18 Payer Source: Insurance Treatment Diagnosis: calcaneal spur, R ankle pain in area of achilles, calcaneal bursitis Current Subjective/complaints:: Patient says she is having pain mostly at the medial portion of the heel. She says therapy sessions continue to be helpful as she has less pain with WBing and walking, but pain seems to have moved slightly and she feels it may be bursitis. *Precautions: n/a - Treatment Modality: Ultrasound Parameters/Method Applied: Phonophoresis using 2.5 hydrocortisone cream continuous @ 3.3 mHz, 1.5 w/cm2 x 8 mins, then pulsed @ 20% 0.6 w/cm2 x 5 mins to the achilles tendon (distally) and just inferior to the medial malleoli. Patient Position: Sitting - Heat/Cryotherapy Treatment: Hot Pack (x 15 mins tothe R arch/heel/achilles in sitting) Interventions - Exercise/Activities/Manual Therapy Exercises/Activities: Reviewed HEP, ice massage. Performed passive stretching for gastroc/soleus, and plantar fascia Manual Therapy: Massage to R ankle, with deep tissue massage along achilles and gastroc muscle group. Passive stretch of plantar fascia. Total minutes of Manual Therapy: 14 HOME EXERCISE PROGRAM: pt given written HEP including PF, DF, inversion, eversion, PF with green theraband, heel cord stretch - Charges Timed Code Treatment Minutes: 28 Total Treatment Time: 43 Procedures billed for this date of service:: hp, u/s, MT Assessment: Patient experiencing less pain overall, but is hoping for more consistent and less intense pain relief. She has pain during u/s at the medial heel aspect very locally, but when depth level was changed to 3.3 mHz, pain went away. 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 Also, strengthening to the R ankle to provide more support.
--- NOTE | 2018-08-15 15:25 | RS.OPPTDN ---
Subjective Date of Note: 08/15/18 Visit #: 10 Number of visits approved by Insurance: 12 Date of Evaluation: 07/18/18 Payer Source: Insurance Treatment Diagnosis: calcaneal spur, R ankle pain in area of achilles, calcaneal bursitis Current Subjective/complaints:: Patient says she can feel her "sore spot." She says she feels less pain overall with ambulation and Wbing and is performing HEP. *Precautions: n/a - Treatment Modality: Ultrasound Parameters/Method Applied: PHONOPHORESIS using 2.5% Hydrocortisone continuous @ 1.5 w/cm2 x 7 mins to the R medial heel region and just inferior to the medial malleoli. Pulsed @ 20% x 5 mins @ 0.6 w/cm2 to same area. - Heat/Cryotherapy Treatment: Hot Pack (15 mins to the R foot (medial arch and malleoli, achilles)) , Cryotherapy Comments:: ice massage to the R medial malleoli/achilles tendon, medial heel x 4 mins Interventions - Exercise/Activities/Manual Therapy Exercises/Activities: Passive stretching to heel cords, plantar fascia, great toe stretching, PROM IV/EV. Manual isometrics 2x5. Reviewed HEP and ice massage. Total minutes of Exercise: 12 Manual Therapy: na HOME EXERCISE PROGRAM: pt given written HEP including PF, DF, inversion, eversion, PF with green theraband, heel cord stretch - Charges Timed Code Treatment Minutes: 30 Total Treatment Time: 45 Procedures billed for this date of service:: hp, u/s, ex, cp Assessment: Patient experiencing less pain in general to the R foot, but is hopeful to have further reduction with using phonophoresis. She demo increased strength with manual resistance and improved flexibility. Patient Education: Home Exercise Program, Education of Plan of Care Patient demonstrates compliance with HEP?: Yes Short Term Goals Goal #1: pt independent with initial HEP Goal to be met by: 08/01/18 Progress towards Goal:: Met Goal #2: Improve ROM R ankle to WFL's Goal to be met by: 08/01/18 Progress towards Goal:: Partially Met Goal #3: Decrease edema R ankle Goal to be met by: 08/01/18 Progress towards Goal:: Met Goal #4: Decrease pain R ankle < 3/10 Goal to be met by: 08/01/18 Progress towards Goal:: Met Rn Allergy Goals Goal #1: pt amb with decreased antalgic gait pattern Goal to be met by: 08/19/18 Progress towards goal: Progressing Goal #2: pt report decreased pain with working normal shift Goal to be met by: 08/19/18 Progress towards goal: Progressing Plan Dates of Rn Allergy Goals: 08/19/18 Expiration date of current Insurance Approval:: 08/19/18 PLAN: Patient to continue with phonophoresis and therex
--- NOTE | 2018-08-19 14:24 | RS.OPPTDN ---
Subjective Date of Note: 08/19/18 Visit #: 11 Number of visits approved by Insurance: 12 Date of Evaluation: 07/18/18 Payer Source: Insurance Treatment Diagnosis: calcaneal spur, R ankle pain in area of achilles, calcaneal bursitis Current Subjective/complaints:: Patient reports increased R distal calf and heel pain. She says she had to walk uphill for [employer] yesterday. She says she knows she has been walking differently on it to relieve pain and has developed compensation habit. She says she is trying to avoid that, but she also has pain when "walking correctly." States she has tenderness to the distal calf also. *Precautions: n/a - Treatment Modality: Ultrasound Parameters/Method Applied: PHONOPHORESIS using Hydrocortisone 2.5 % continuous @ 1.0 w/cm2, 3.3mHz x 12 mins Treatment Area: along achilles and insertion point Patient Position: Sitting - Heat/Cryotherapy Treatment: Hot Pack (distal calf and and medial arch x 15 mins in sitting) Interventions - Exercise/Activities/Manual Therapy Exercises/Activities: passive heel cord stretching with MT Manual Therapy: STM and directional massage for mild swelling intermittently stretching passively and AROM. Total minutes of Manual Therapy: 16 HOME EXERCISE PROGRAM: pt given written HEP including PF, DF, inversion, eversion, PF with green theraband, heel cord stretch - Charges Timed Code Treatment Minutes: 28 Total Treatment Time: 43 Procedures billed for this date of service:: hp, u/s, MT Assessment: Patient presents with increased R foot pain mostly at the distal calf along the achilles tendon and medial heel. She has had to walk uphill yesterday in which she feels is the reason for her symptom increase. She has tenderness to moderate pressure during u/s and MT. Mild swelling noted to the medial malleoli region (just inferiorally). Passive stretching did result in increased motion from when she arrived for her appt today particularly DF. Short Term Goals Goal #1: pt independent with initial HEP Goal to be met by: 08/01/18 Progress towards Goal:: Met Goal #2: Improve ROM R ankle to WFL's Goal to be met by: 08/01/18 Progress towards Goal:: Partially Met Goal #3: Decrease edema R ankle Goal to be met by: 08/01/18 Progress towards Goal:: Met Goal #4: Decrease pain R ankle < 3/10 Goal to be met by: 08/01/18 Progress towards Goal:: Met Correction Goals Goal #1: pt amb with decreased antalgic gait pattern Goal to be met by: 08/19/18 Progress towards goal: Progressing Goal #2: pt report decreased pain with working normal shift Goal to be met by: 08/19/18 Progress towards goal: Progressing Plan 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 She has completed 11 of 12 sessions in which POC ends today. She does not have a scheduled MD visit for follow up. Encourage patient to return to [facility] for further assessment and orders if agreeable.
== END 2018-08-30 23:59 ==
PROVIDERS: ATTEND Nurse Practitioner Family
DX: M77.51 Other enthesopathy of right foot and ankle (principal); M25.571 Pain in right ankle and joints of right foot; G89.29 Other chronic pain; M25.671 Stiffness of right ankle, not elsewhere classified

== ENCOUNTER 2018-09-21 15:31 | Outpatient (CLI) | END 2018-09-21 15:32 | disposition home or self-care (01) | LOC: LAB 15:31 | PROVIDERS: ATTEND Family Medicine | DX: E03.9 Hypothyroidism, unspecified (principal); Z68.42 Body mass index [BMI] 45.0-49.9, adult; Z51.81 Encounter for therapeutic drug level monitoring; Z79.899 Other long term (current) drug therapy | CPT/HCPCS: 36415; 80053; 84443; 85025; 93005; 93010 ==

== ENCOUNTER 2018-10-24 10:38 | Outpatient (CLI) ==
--- NOTE | 2018-10-24 14:20 | DI ---
EXAM: CHEST FRONTAL AND LATERAL VIEWS HISTORY: Bronchitis. COMPARISON: 08/30/2017 FINDINGS / IMPRESSION: Cannot exclude mild infiltrate/pneumonia in the middle lobe or less likely li ngula. Lungs are otherwise clear. No vascular congestion or pleural fluid. No pneumothorax
== END 2018-10-24 10:39 | disposition home or self-care (01) ==
LOC: RAD 10:38
PROVIDERS: ATTEND Family Medicine
DX: J40 Bronchitis, not specified as acute or chronic (principal); R09.02 Hypoxemia
CPT/HCPCS: 36415; 80053; 85025

== ENCOUNTER 2019-11-06 10:58 | Inpatient (IN) ==
[2019-11-06] MEDS ORDERED: SOLU-MEDROL 125 MG IVP STA (11:12)
[2019-11-06] MEDS ORDERED: DUONEB NEB STA ×2 (11:12→12:20)
[2019-11-06] MEDS ORDERED: SODIUM CHLORIDE 500 ML IV STA (11:12)
[2019-11-06] MEDS ORDERED: SODIUM CHLORIDE 1,000 ML IV STA (11:12)
[2019-11-06] MEDS ORDERED: VENTOLIN HFA (PER PUFF-WITH SPACER) IH STA ×2 (11:29→12:53)
[2019-11-06] MEDS ORDERED: ATROVENT HFA INHALER (PER PUFF-WITH SPACER) IH STA ×2 (11:29→13:13)
[2019-11-06 11:39] LABS: HEMATOCRIT 40.1 % (37.0-47.0)
--- NOTE | 2019-11-06 11:42 | ED.PDOC ---
General ED Provider: Dr. OSEAS WAY MD Chief Complaint: Respiratory Complaint Stated Complaint: Increasing SOB and wheezing x worse this AM. Time Seen by Physician: 11:07 Mode of Arrival: Walk-In Information Source: Patient Exam Limitations: No limitations Primary Care Provider: SHAR PINA MD Nursing and Triage Documentation Reviewed and Agree: Yes Does patient meet sepsis criteria?: No If yes, has appropriate treatment been initiated?: No System Inflammatory Response Syndrome: Not Applicable Sepsis Protocol: For patient's 13 years and over: Temp is 96.8 and below OR 101 and greater Pulse >90 BPM Resp >20/minute Acutely Altered Mental Status Are patient's symptoms suggestive of a new infection, such as: -Pneumonia -Skin, Soft Tissue -Endocarditis -UTI -Bone, Joint Infection -Implantable Device -Acute Abdominal Infection -Wound Infection -Meningitis -Blood Stream Catheter Infection -Unknown Respiratory Complaint Exam Shortness of Air Complaint/Exam Onset/Duration: 3 days Symptoms Are: Worse Timing: Constant Initial Severity: Mild Current Severity: Moderate Character: Reports Dyspnea at rest, Dyspnea on exertion and Orthopnea Alleviating: Reports None Associated Signs and Symptoms: Reports Wheezing and Rapid breathing History of Healthcare-Acquired Pneumonia: No Pseudomonas Risk Factors: Reports Chronic Lung Disease Tuberculosis Risk Factors: Reports Smoking (pt smoked for 25 yrs but quit smoking 20 years ago.) Home Oxygen Use: No Respiratory Distress: Moderate Stridor Present: No Tracheal Deviation: No Subcutaneous Emphysema: No Accessory Muscle Use: Yes Retractions: Intercostal Diminished Breath Sounds: No Fatigue: Yes Leg Swelling: No Michelle's Sign Present: No Grunting Respirations: No Differential Diagnoses: Asthma, CHF, Pulmonary Edema, COPD Exacerbation, Pneumonia, Pulmonary Embolism, Bronchitis and Bronchospasm Quality Indicator For Non-Traumatic Chest Pain/Syncope: EKG Performed Quality Indicators For Pneumonia/CAP: SpO2 assessed, Vital signs and Mental status assessed Review of Systems Review Of Systems Constitutional: Reports Sweats Eyes: Reports No symptoms Respiratory: Reports Cough, Short of air and Wheezing; Denies Stridor Cardiac: Reports Palpitations GI: Reports No symptoms : Reports No symptoms Musculoskeletal: Reports No symptoms Skin: Reports No symptoms Neurological: Reports No symptoms Endocrine: Reports Excessive sweating Hematologic/Lymphatic: Reports No symptoms All Other Systems: Reviewed and Negative [facility] Medical History Abnormal Pap smear of cervix Cataract Fuchs' corneal dystrophy Hypothyroidism Squamous cell carcinoma (~2006) Stress incontinence Social History Smoking and tobacco status: Former smoker Passive smoking exposure: No Second hand smoke exposure: No Smoking risk assessment performed: No Alcohol intake: never Substance use type: does not use Counseling given: No Evie/adventism: GNOSTICISM Special evie needs: No Agree to transfusion: Yes Adopted: Yes Caregiver/support person: No Foster care: No Household members: none Housing: house Lives independently: Yes Daycare: no daycare Number of children: 3 Number of grandchildren: 2 Highest education level completed: Associate degree: occupational, technical, vocational program Financial difficulty paying for basics: not very hard service: No long-term: No 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 Current occupational exposures/hazards: No Pets and animals: Yes (cat) History of recent travel: No Do you think of yourself as: straight/heterosexual Seatbelt use: always Helmet use: No Drives intoxicated or rides with intoxicated tractor trailer moving 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: No Current diet type/program: regular Well-balanced diet: daily Caffeine: No Reads food labels: sometimes During the past year weight has: remained stable Water heater temperature set < 120 degrees: Yes Working smoke detector in home: Yes Fire extinguisher in home: No Firearms in home: No What type of physical activity do you participate in?: none Physical activity functional status: independent ambulation Female Reproductive History Menstrual Hx Hysterectomy: No Hx Tubal Ligation: No Physical Exam Physical Exam Appearance: Reports Ill-appearing Ill-appearing: Mild Eyes: Reports DEIDRE, EOMI and Conjunctiva clear ENT: Reports Ears normal, Nose normal and Oropharynx normal Neck: Supple Respiratory: Reports Crackles, Rhonchi and Wheezes Cardiovascular: Reports Pulses normal and Tachycardia GI/: Reports Soft, Nontender, No masses and Bowel sounds normal Musculoskeletal: Reports Normal strength, ROM intact, No edema and No calf tenderness Skin: Reports Warm, Dry and Normal color Neurological: Reports Sensation intact, Motor intact, Reflexes intact and Cranial nerves intact Psychiatric: Reports Affect appropriate and Mood appropriate Interpretation Radiology Interpretation Radiology Interpretation By: Radiologist Radiology Results: No acute changes Re-Evaluation Re-Evaluation Time of Re-Evaluation: 12:00 Status: Unchanged Vital Signs Stable: Yes Appearance: NAD Lungs: Other (rhonchi and wheezes.) Skin: Warm and Dry Neuro: Alert and Oriented X3 CV: RRR Physician Notification Case Discussed Physician Notified: Dr Fuller Time of Notification: 16:01 Endorsed To/Discussed With: Pt was d/w Dr Fuller and admitted to Observation/Hospitalist service Critical Care Note Critical Care Note Total Time (mins): 30 Course Course Hematology/Chemistry: 11/06/19 11:35 11/06/19 11:35 Orders, Labs, Meds: Lab Review 11/06/19 11/06/19 11/06/19 11:23 11:35 11:35 WBC 11.57 H RBC 4.70 Hgb 12.6 Hct 40.1 MCV 85.3 MCH 26.8 L MCHC 31.4 L RDW Coeff of Derick 13.7 Plt Count 264 Immature Gran % (Auto) 0.5 Neut % (Auto) 56.7 Lymph % (Auto) 25.2 [place] % (Auto) 5.9 Eos % (Auto) 11.1 H Baso % (Auto) 0.6 Neut # (Auto) 6.6 Lymph # (Auto) 2.9 [place] # (Auto) 0.7 Eos # (Auto) 1.3 H Baso # (Auto) 0.1 Immature Gran # (Auto) 0.1 Puncture Site Rr O2 Saturation 100.0 ABG pH 7.470 H ABG pCO2 36.1 ABG pO2 161.0 H ABG HCO3 26.3 H ABG Total CO2 27 ABG Base Excess 3 H Danny Test + FiO2 % 21.0 Sodium 137.8 Potassium 3.81 Chloride 104.0 Carbon Dioxide 25.8 Anion Gap 11.81 BUN 11.1 Creatinine 0.64 Estimated GFR (MDRD) 94.00 BUN/Creatinine Ratio 17.34 Glucose 104.6 Calcium 9.16 Total Bilirubin 0.56 AST 22.2 ALT 20.0 Alkaline Phosphatase 86.7 Troponin I < 0.012 NT-Pro-B Natriuret Pep 44.700 Total Protein 7.03 Albumin 3.77 Globulin 3.26 Albumin/Globulin Ratio 1.15 Urine Color Urine Clarity Urine pH Ur Specific [place]ane Urine Protein Urine Glucose (UA) Urine Ketones Urine Blood Urine Nitrite Urine Bilirubin Urine Urobilinogen Ur Leukocyte Esterase 11/06/19 15:50 WBC RBC Hgb Hct MCV MCH MCHC RDW Coeff of Derick Plt Count Immature Gran % (Auto) Neut % (Auto) Lymph % (Auto) [place] % (Auto) Eos % (Auto) Baso % (Auto) Neut # (Auto) Lymph # (Auto) [place] # (Auto) Eos # (Auto) Baso # (Auto) Immature Gran # (Auto) Puncture Site O2 Saturation ABG pH ABG pCO2 ABG pO2 ABG HCO3 ABG Total CO2 ABG Base Excess Danny Test FiO2 % Sodium Potassium Chloride Carbon Dioxide Anion Gap BUN Creatinine Estimated GFR (MDRD) BUN/Creatinine Ratio Glucose Calcium Total Bilirubin AST ALT Alkaline Phosphatase Troponin I NT-Pro-B Natriuret Pep Total Protein Albumin Globulin Albumin/Globulin Ratio Urine Color Light Urine Clarity Clear Urine pH 8.5 Ur Specific [place] 1.015 Urine Protein Negative Urine Glucose (UA) Negative Urine Ketones Negative Urine Blood Negative Urine Nitrite Negative Urine Bilirubin Negative Urine Urobilinogen 0.2 Ur Leukocyte Esterase Negative Orders Category Date Time Status ABG DRAW REQUEST Stat CARDIO 11/06/19 11:23 Completed EKG-(ED ONLY) Stat CARDIO 11/06/19 11:12 Completed NEBULIZER TREATMENT Routine CARDIO 11/06/19 16:44 Ordered OXYGEN Routine CARDIO 11/06/19 16:40 Ordered ACTIVITY .Up ad Andra CARE 11/06/19 16:40 Active INTAKE & OUTPUT Q8HR CARE 11/06/19 16:40 Active NPO REMINDER: IMAGING ONCE CARE 11/06/19 11:15 Completed NPO REMINDER: IMAGING ONCE CARE 11/06/19 13:13 Active VITAL SIGNS Q2HR CARE 11/06/19 16:40 Active VITAL SIGNS Q8HR CARE 11/06/19 16:40 Active REGULAR DIET DIETARY 11/06/19 Dinner Ordered ED IV/MEDIPORT/POWERPORT .ONCE EMERGENCY 11/06/19 11:12 Active ABG Stat LAB 11/06/19 11:23 Completed CBC W/ AUTO DIFF Stat LAB 11/06/19 11:35 Completed COMPREHENSIVE METABOLIC PANEL Stat LAB 11/06/19 11:35 Completed NT-PROBNP Stat LAB 11/06/19 11:35 Completed TROPONIN I Stat LAB 11/06/19 11:35 Completed URINALYSIS C & S IF INDICATED Stat LAB 11/06/19 15:50 Completed 0.9 % Sodium Chloride [Saline Flush] MEDS 11/06/19 11:12 Active 1 syr IVF PRN PRN Albuterol Inhaler(with Spacer) [Ventolin Hfa (Per Puff- MEDS 11/06/19 11:29 Discontinued with Spacer)] 2 puff IH ONCE STA Albuterol Inhaler(with Spacer) [Ventolin Hfa (Per Puff- MEDS 11/06/19 12:53 Discontinued with Spacer)] 2 puff IH ONCE STA Ipratropium Inhaler(Spacer) [Atrovent Hfa Inhaler (Per MEDS 11/06/19 11:29 Discontinued Puff-with Spacer)] 2 puff IH ONCE STA Ipratropium Inhaler(Spacer) [Atrovent Hfa Inhaler (Per MEDS 11/06/19 13:13 Discontinued Puff-with Spacer)] 2 puff IH ONCE STA Ipratropium/Albuterol Inhaler [Combivent Respimat MEDS 11/06/19 13:00 Discontinued Inhaler] 1 spray IH QID Ipratropium/Albuterol Neb [Duoneb] MEDS 11/06/19 11:12 Discontinued 3 ml NEB ONCE STA Ipratropium/Albuterol Neb [Duoneb] MEDS 11/06/19 12:20 Discontinued 3 ml NEB ONCE STA Ipratropium/Albuterol Neb [Duoneb] MEDS 11/06/19 20:00 Active 3 ml NEB RTQID Methylprednisolone Sod Succ/Pf [Solu-Medrol 125 mg] MEDS 11/06/19 11:12 Discontinued 125 mg IVP ONCE STA Sodium Chloride 0.9% [Sodium Chloride] 1,000 ml MEDS 11/06/19 11:12 Active IV 125 mls/hr Sodium Chloride 0.9% [Sodium Chloride] 500 ml MEDS 11/06/19 11:12 Discontinued IV BOLUS RESUSCITATION STATUS Routine OTHERS 11/06/19 16:[address] CHEST W/CONTRAST Stat RADS 11/06/19 13:13 Completed Medications Generic Name Dose Route Start Last Admin Trade Name Freq PRN Reason Stop Dose Admin Albuterol/Ipratropium 3 ml 11/06/19 20:00 Duoneb NEB RTQID RANDY Dexamethasone Sodium Phosphate 4 mg 11/06/19 18:00 Decadron 4 Mg/Ml Sdv IVP Q6HR RANDY Sodium Chloride 1,000 mls @ 125 mls/hr 11/06/19 11:12 11/06/19 11:43 Sodium Chloride IV 11/06/19 19:11 125 mls/hr .Q8H STA Administration Sodium Chloride 1 syr 11/06/19 11:12 Saline Flush IVF PRN PRN To flush IV Discontinued Medications Generic Name Dose Route Start Last Admin Trade Name Freq PRN Reason Stop Dose Admin Albuterol Sulfate 2 puff 11/06/19 11:29 11/06/19 11:49 Ventolin Hfa (Per Puff-With Spacer) IH 11/06/19 11:30 2 puff ONCE STA Administration Albuterol Sulfate 2 puff 11/06/19 12:53 11/06/19 13:11 Ventolin Hfa (Per Puff-With Spacer) IH 11/06/19 12:54 2 puff ONCE STA Administration Albuterol/Ipratropium 3 ml 11/06/19 11:12 11/06/19 11:32 Duoneb NEB 11/06/19 11:13 Not Given ONCE STA Albuterol/Ipratropium 3 ml 11/06/19 12:20 11/06/19 13:10 Duoneb NEB 11/06/19 12:21 Not Given ONCE STA Albuterol/Ipratropium 1 spray 11/06/19 13:00 11/06/19 13:12 Combivent Respimat Inhaler IH Not Given QID RANDY Sodium Chloride 500 mls @ 500 mls/hr 11/06/19 11:12 11/06/19 11:43 Sodium Chloride IV 11/06/19 12:11 500 mls/hr BOLUS STA Administration Ipratropium [place] 2 puff 11/06/19 11:29 11/06/19 11:49 Atrovent Hfa Inhaler (Per Puff-With Spacer) IH 11/06/19 11:30 2 puff ONCE STA Administration Ipratropium [place] 2 puff 11/06/19 13:13 11/06/19 13:13 Atrovent Hfa Inhaler (Per Puff-With Spacer) IH 11/06/19 13:14 2 puff ONCE STA Administration Methylprednisolone Sodium Succinate 125 mg 11/06/19 11:12 11/06/19 11:41 Solu-Medrol 125 Mg IVP 11/06/19 11:13 125 mg ONCE STA Administration Vital Signs: Temp Pulse Resp BP Pulse Ox 07/06/20 10:59 97.7 F 108 H 22 176/77 H 95 Discharge Plan Discharge Patient Disposition: PLACED OBSERVATION Discharge Problem: Acute exacerbation of chronic obstructive pulmonary disease ED Provider: OSEAS WAY Condition: Stable
[2019-11-06] MEDS ORDERED: COMBIVENT RESPIMAT INHALER IH SCH (13:00)
--- NOTE | 2019-11-06 14:10 | CT ---
EXAM: CT chest with contrast. HISTORY: Shortness of breath, wheezing. COMPARISON: Radiograph 10/24/2019. CT 09/22/2017. TECHNIQUE: Multiple axial images of the chest were obtained following intravenous administration of 125 mL of Omnipaque 350, low osmolar. Images were reformatted in the sagittal and coronal planes. FINDINGS: Stable fluid density anterior mediastinal structure measuring 2.2 x 1.7 cm on axial image 20. No mediastinal, hilar, or axillary lymphadenopathy identified. The heart size is normal. There is no pericardial effusion. Aorta is normal in caliber. There is no evidence for aortic dissection . No pulmonary arterial filling defects are seen. No consolidation, pleural effusion, pneumothorax identified. Anterior right lung nodules on axial im ages 30 and 31 are stable. Limited images of the upper abdomen demonstrate stable hepatic cysts. Degenerative changes are present in the spine. IMPRESSION: 1. No acute cardiopulmonary process. 2. Stable anterior mediastinal cystic lesion. 3. Stable right lung micronodules.
[2019-11-06 17:56] VITALS: BMI 49.0
[2019-11-06] MEDS: DECADRON 4 MG/ML SDV IVP SCH (18:10)
[2019-11-06] MEDS: ATROVENT HFA INHALER (PER PUFF-WITH SPACER) IH SCH ×2 (18:25→23:05)
[2019-11-06] MEDS: VENTOLIN HFA (PER PUFF-WITH SPACER) IH SCH (19:40)
[2019-11-06] MEDS ORDERED: DUONEB NEB SCH (20:00)
[2019-11-07] MEDS: DECADRON 4 MG/ML SDV IVP SCH ×3 (01:00→13:17)
[2019-11-07] MEDS: VENTOLIN HFA (PER PUFF-WITH SPACER) IH SCH ×4 (05:00→23:13)
[2019-11-07] MEDS: ATROVENT HFA INHALER (PER PUFF-WITH SPACER) IH SCH ×4 (05:02→23:13)
[2019-11-07 05:10] LABS: HEMATOCRIT 41.5 % (37.0-47.0)
[2019-11-07] MEDS: VESICARE PO SCH (09:11)
[2019-11-07] MEDS ORDERED: TYLENOL PO PRN (10:14)
[2019-11-07] MEDS: MUCINEX PO SCH ×2 (15:14→19:59)
[2019-11-07] MEDS: TESSALON PERLES PO SCH ×2 (15:14→19:59)
[2019-11-07] MEDS: LEVAQUIN 750 MG/150 ML D5W 750 MG/150 ML BAG IV SCH (15:27)
[2019-11-07] MEDS: SOLU-MEDROL 125 MG IVP SCH ×2 (15:27→22:10)
[2019-11-07] MEDS ORDERED: LEVAQUIN 500 MG/100 ML D5W 500 MG/100 ML BAG IV SCH (15:30)
--- NOTE | 2019-11-07 21:45 | PCM.PROG ---
Date Seen by Provider: 11/07/19 Time Seen by Provider: 15:00 Subjective: States feeling better. Objective: Vitals: T=97.7 F, P=97, R=18, PZ=524/75, SPO2=93 HEENT: [Clear] Neck: [Supple. Neg JVD] Lungs: scattered inspiratory/expiratory wheezes[] CVS: [HRRRR no murmur] Abdomen: [soft non tender] Extremities: [Neg edema+] Neurological: [] Skin: W/Dry Lab/Tests/Diagnostic Imaging: [] Impression : Exacerabation COPD (1) Bronchitis: Status: Acute Code(s): J40 - Bronchitis, not specified as acute or chronic SNOMED Code(s): 88347760 Plan: Start IV Levaquin and switch to Solumedrol from dexamethasone/Tessalon for coughinh Make Full admit
[2019-11-08] MEDS: VENTOLIN HFA (PER PUFF-WITH SPACER) IH SCH ×4 (04:30→23:35)
[2019-11-08] MEDS: ATROVENT HFA INHALER (PER PUFF-WITH SPACER) IH SCH ×4 (04:30→23:35)
[2019-11-08 05:06] LABS: HEMATOCRIT 40.3 % (37.0-47.0)
[2019-11-08] MEDS: SOLU-MEDROL 125 MG IVP SCH ×3 (05:57→20:48)
--- NOTE | 2019-11-08 08:18 | PCM.PROG ---
S: Patient reports significant clinical improvement. She was started on Levaquin yesterday, and the Decadron was changed to SoluMedrol. The morning labs were reviewed, and she is a touch dry. She has decent oral intake of fluids, but reports it consists primarily of iced tea. She was encouraged to increase her water intake. O: VSS, O2 94% on 2LNC HEENT: NCAT, PEERLA, EOMI Neck: No JVD noted CV: S1S2, RRR Pulm: Light rales at base, otherwise CTA B Abd: Soft, NT, NABS MS: Normal function Neuro: CN intact, no reported sensory deficits A: Patient improved clinically, but she is not quite ready for discharge. She would benefit from IV hydration and addition of a second antibiotic. She is allergic to Cephalosporins (anaphylaxis), but does well with Penicillins. P: Will add IVF (NS @ 100mL/hr) and a second antibiotic (Zosyn). Anticipate further improvement with possible discharge tomorrow.
[2019-11-08] MEDS: SODIUM CHLORIDE 1,000 ML IV SCH ×2 (09:35→23:38)
[2019-11-08] MEDS: LEVAQUIN 750 MG/150 ML D5W 750 MG/150 ML BAG IV SCH (09:37)
[2019-11-08] MEDS: VESICARE PO SCH (09:43)
[2019-11-08] MEDS: MUCINEX PO SCH ×2 (09:43→20:48)
[2019-11-08] MEDS: TESSALON PERLES PO SCH ×3 (09:43→20:48)
[2019-11-08] MEDS: ZOSYN 4.5 GM 4.5 GM in SODIUM CHLORIDE 100 ML IV SCH ×3 (12:27→23:38)
[2019-11-09] MEDS: VENTOLIN HFA (PER PUFF-WITH SPACER) IH SCH (05:00)
[2019-11-09] MEDS: ATROVENT HFA INHALER (PER PUFF-WITH SPACER) IH SCH (05:02)
[2019-11-09] MEDS: SOLU-MEDROL 125 MG IVP SCH ×3 (05:21→21:05)
[2019-11-09] MEDS: ZOSYN 4.5 GM 4.5 GM in SODIUM CHLORIDE 100 ML IV SCH ×4 (05:23→23:49)
[2019-11-09 05:24] LABS: HEMATOCRIT 37.5 % (37.0-47.0)
[2019-11-09] MEDS: SODIUM CHLORIDE 1,000 ML IV SCH ×2 (07:36→17:28)
[2019-11-09] MEDS: SYMBICORT 160-4.5 MCG INHALER IH SCH ×2 (09:26→21:05)
[2019-11-09] MEDS: LEVAQUIN 750 MG/150 ML D5W 750 MG/150 ML BAG IV SCH (09:26)
[2019-11-09] MEDS: VESICARE PO SCH (09:27)
[2019-11-09] MEDS: TESSALON PERLES PO SCH ×3 (09:27→21:05)
[2019-11-09] MEDS: MUCINEX PO SCH ×2 (09:27→21:05)
--- NOTE | 2019-11-09 09:34 | DI ---
EXAM: Chest one view HISTORY: Dyspnea, wheezing COMPARISON: 10/04/2019 TECHNIQUE: Single view of the chest was performed FINDINGS: Low lung volumes. No definite consolidation. There is no pleural effusion or pneumothora x. The heart is normal in size. The mediastinal contour is normal. There are no acute abnormalitie s of the bones. IMPRESSION: Low lung volumes. No definite acute cardiopulmonary process.
[2019-11-09] MEDS: VENTOLIN HFA (PER PUFF-WITH SPACER) IH PRN (13:56)
--- NOTE | 2019-11-09 16:41 | PCM.PROG ---
Date Seen by Provider: 11/09/19 Time Seen by Provider: 16:25 Subjective: Patient has been seen twice today-0820 ad 1600hrs. Somewhat anxious this morning, still mildly dyspneic with tight chest congestion, ant/posterior end inspiratory wheezing and expiratory wheezing, Overall good air flow.Concerned about her condition and what etiology of her URI. Reviewed chart and note Zosyn with continued IV fluids. Appetite fair Objective: Vitals: T=98.5 F, P=72, R=18, ZB=468/68, SPO2=92 HEENT: Clear Neck: supple , soft Lungs:ant/posterior end inspiratory wheezing and expiratory wheezing, Overall good air flow CVS: Cardia RRR w/O Murmur Abdomen: Obese, soft non tender Extremities: Neg clubbing or cyansososi Neurological: CN II-XII intact; No focal deficit Skin: WNL Lab/Tests/Diagnostic Imaging: See Chart(d Dimer neg) (1) Bronchitis: Status: Acute Code(s): J40 - Bronchitis, not specified as acute or chronic SNOMED Code(s): 39486133 Assessment: Acute Bronchitis-improved (2) Shortness of breath: Status: Acute Code(s): R06.02 - Shortness of breath SNOMED Code(s): 478048019 Assessment: Improved Plan: Discussed treatment plan and discharged planing Prefers to stay through AM Home on oral Meds Levaquin 750 Mg daily for additional days after discharge, oral prednisone, Symbicort Off work through next Wednesday to allow for resolution Out patient follow up Dr Bello after discharge Use Albuterol nebs as needed
[2019-11-10] MEDS: SOLU-MEDROL 125 MG IVP SCH (05:32)
[2019-11-10] MEDS: ZOSYN 4.5 GM 4.5 GM in SODIUM CHLORIDE 100 ML IV SCH ×4 (05:32→23:42)
[2019-11-10] MEDS: LEVAQUIN 750 MG/150 ML D5W 750 MG/150 ML BAG IV SCH (09:01)
[2019-11-10] MEDS: VESICARE PO SCH (09:01)
[2019-11-10] MEDS: TESSALON PERLES PO SCH ×3 (09:01→21:22)
[2019-11-10] MEDS: MUCINEX PO SCH ×2 (09:01→21:22)
[2019-11-10] MEDS: SYMBICORT 160-4.5 MCG INHALER IH SCH ×2 (09:12→21:23)
--- NOTE | 2019-11-10 11:30 | PCM.PROG ---
Patient seen on Regular Rounds. 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 Being treated with inhalers, solumedrol and levaquin. Slowly improving and tolerating longer periods off supplemental 02 with sats in the 94% range. Much less Work of Breathing according to patient. S: I feel better today, mostly just tired. O: Vitals stable 02 Sats 93L T 97.8 P 61 BP 124/74 RR 16 Skin Warm and dry Chest Clear with decreased Cor: S1S2 Abd: soft, nontender ext: no CCERP Signed Patient: ESTHELA FRANKAcct:[id number] Record: [id number] : 1955Loc: [facility] BRoom/Bed: Age/Sex: 64 / FADM Status: ADM INDate of Service: 11/09/19 Ordering Physician: ADDY CASTILLO DO Procedure(s): CHEST, 1V AP ONLY Report Number(s): [id number] Accession Number(s): [id number] cc: ADDY CASTILLO DO; SHAR PINA MD EXAM: Chest one view HISTORY: Dyspnea, wheezing COMPARISON: 10/04/2019 TECHNIQUE: Single view of the chest was performed FINDINGS: Low lung volumes. No definite consolidation. There is no pleural effusion or pneumothorax. The heart is normal in size. The mediastinal contour is normal. There are no acute abnormalities of the bones. IMPRESSION: Low lung volumes. No definite acute cardiopulmonary process. Dictated By:JUAN MCKEON CBC: 17.8 WBC HB 13.3/42.0 CMP : NA: 137 K:3.5 GLu 140 Assess/Plan: 1:)Slowly improving COPD exacerbation: Will begin to taper stroid from 125 q8 to 40 q8 and see how she does. XRAY and labs stable, Baseline )2 sat improving. Anticipate discharge in 1-2 days as 02 sats stabilize. 2:) Hypothyroidis: will recheck thyroid panel to see if thyroid replacement needs to be restarted.
[2019-11-10] MEDS: SOLU-MEDROL 40 MG IVP SCH ×2 (12:07→21:22)
[2019-11-11] MEDS: VENTOLIN HFA (PER PUFF-WITH SPACER) IH PRN (02:46)
[2019-11-11] MEDS: ZOSYN 4.5 GM 4.5 GM in SODIUM CHLORIDE 100 ML IV SCH (05:28)
[2019-11-11] MEDS: SOLU-MEDROL 40 MG IVP SCH (05:28)
[2019-11-11 05:44] VITALS: BP 132/71; TEMP 97.7
--- NOTE | 2019-11-11 07:32 | PCM.PROG ---
Objective: Vitals: T=97.7 F, P=93, R=18, YO=683/71, SPO2=93 HEENT: [no icterus ] Neck: []supple Lungs: [] no wheeze rhonchi or rales CVS: [regular R/R no murmur] Abdomen: [non tender Extremities: []FROM Neurological: [A/O x3] Skin: no rash[] Lab/Tests/Diagnostic Imaging: [] (1) Bronchitis: Status: Acute Code(s): J40 - Bronchitis, not specified as acute or chronic SNOMED Code(s): 06782773 Assessment: improved (2) Shortness of breath: Status: Acute Code(s): R06.02 - Shortness of breath SNOMED Code(s): 351431886 Assessment: improved Plan: Report to DrKupferer at morning shift change
[2019-11-11] MEDS ORDERED: LEVAQUIN PO STA (08:18)
[2019-11-11] MEDS ORDERED: PREDNISONE PO SCH ×2 (08:30)
[2019-11-11] MEDS: SYMBICORT 160-4.5 MCG INHALER IH SCH (08:32)
[2019-11-11] MEDS: VESICARE PO SCH (08:32)
[2019-11-11] MEDS: MUCINEX PO SCH (08:33)
[2019-11-11] MEDS: TESSALON PERLES PO SCH (08:33)
[2019-11-11 08:36] LABS: HEMATOCRIT 37.9 % (37.0-47.0)
[2019-11-11] MEDS ORDERED: SPIRIVA IH SCH (09:00)
--- NOTE | 2019-11-16 19:21 | PCM.DC ---
Final Diagnosis: Bronchitis (1) Bronchitis: Status: Acute Code(s): J40 - Bronchitis, not specified as acute or chronic SNOMED Code(s): 13569875 (2) Shortness of breath: Status: Acute Code(s): R06.02 - Shortness of breath SNOMED Code(s): 994858758 Medications at Discharge: Ambulatory Orders Medication Instructions Recorded solifenacin 10 mg tablet 10 mg PO DAILY #90 tab 08/28/19 albuterol sulfate 90 mcg/actuation 2 puff IH Q4-6H PRN #18 gm 10/17/19 aerosol inhaler albuterol sulfate 2.5 mg IH Q6H #180 ml 10/20/19 benzonatate 100 mg PO TID #30 cap 11/11/19 prednisone 10 mg PO BID #35 tab 11/11/19 tiotropium bromide [Spiriva with 1 cap INHALATION DAILY #30 inh 11/11/19 HandiHaler]
--- NOTE | 2019-11-21 14:10 | PCM.DC ---
Final Diagnosis: Acute Bronchitis Exacerbation COPD' Hypothyroidism (1) Bronchitis: Status: Acute Code(s): J40 - Bronchitis, not specified as acute or chronic SNOMED Code(s): 90438562 (2) Shortness of breath: Status: Acute Code(s): R06.02 - Shortness of breath SNOMED Code(s): 656658411 Reason for Hospitalization: Cough congestion and dyspnea Prognosis at Discharge: Fair Medications at Discharge: Ambulatory Orders Medication Instructions Recorded solifenacin 10 mg tablet 10 mg PO DAILY #90 tab 08/28/19 albuterol sulfate 90 mcg/actuation 2 puff IH Q4-6H PRN #18 gm 10/17/19 aerosol inhaler albuterol sulfate 2.5 mg IH Q6H #180 ml 10/20/19 benzonatate 100 mg PO TID #30 cap 11/11/19 prednisone 10 mg PO BID #35 tab 11/11/19 tiotropium bromide [Spiriva with 1 cap INHALATION DAILY #30 inh 11/11/19 HandiHaler] Lab/Diagnostics: Laboratory Tests 11/06/19 11/06/19 11/06/19 11:23 11:35 11:35 WBC 11.57 H RBC 4.70 Hgb 12.6 Hct 40.1 MCV 85.3 MCH 26.8 L MCHC 31.4 L RDW Coeff of Derick 13.7 Plt Count 264 Immature Gran % (Auto) 0.5 Neut % (Auto) 56.7 Lymph % (Auto) 25.2 Allen % (Auto) 5.9 Eos % (Auto) 11.1 H Baso % (Auto) 0.6 Neut # (Auto) 6.6 Lymph # (Auto) 2.9 Allen # (Auto) 0.7 Eos # (Auto) 1.3 H Baso # (Auto) 0.1 Immature Gran # (Auto) 0.1 Neutrophils % (Manual) Band Neutrophils % Lymphocytes % (Manual) Monocytes % (Manual) Eosinophils % (Manual) Basophils % (Manual) Metamyelocytes % Myelocytes % Toxic Granulation Anisocytosis Microcytosis ESR Puncture Site Rr O2 Saturation 100.0 ABG pH 7.470 H ABG pCO2 36.1 ABG pO2 161.0 H ABG HCO3 26.3 H ABG Total CO2 27 ABG Base Excess 3 H Danny Test + O2 Delivery Device Oxygen Liter Flow FiO2 % 21.0 Sodium 137.8 Potassium 3.81 Chloride 104.0 Carbon Dioxide 25.8 Anion Gap 11.81 BUN 11.1 Creatinine 0.64 Estimated GFR (MDRD) 94.00 BUN/Creatinine Ratio 17.34 Glucose 104.6 Calcium 9.16 Total Bilirubin 0.56 AST 22.2 ALT 20.0 Alkaline Phosphatase 86.7 Troponin I < 0.012 NT-Pro-B Natriuret Pep 44.700 Total Protein 7.03 Albumin 3.77 Globulin 3.26 Albumin/Globulin Ratio 1.15 TSH Free T4 Index Thyroxine (T4) T3 Uptake D-Dimer Urine Color Urine Clarity Urine pH Ur Specific [place] Urine Protein Urine Glucose (UA) Urine Ketones Urine Blood Urine Nitrite Urine Bilirubin Urine Urobilinogen Ur Leukocyte Esterase 11/06/19 11/07/19 11/07/19 15:50 05:00 05:00 WBC 16.06 H RBC 4.89 Hgb 13.1 Hct 41.5 MCV 84.9 MCH 26.8 L MCHC 31.6 L RDW Coeff of Derick 13.5 Plt Count 310 Immature Gran % (Auto) 0.9 Neut % (Auto) 88.2 H Lymph % (Auto) 8.7 L Allen % (Auto) 2.0 Eos % (Auto) 0.1 Baso % (Auto) 0.1 Neut # (Auto) 14.2 H Lymph # (Auto) 1.4 Allen # (Auto) 0.3 L Eos # (Auto) 0.0 Baso # (Auto) 0.0 Immature Gran # (Auto) 0.2 Neutrophils % (Manual) Band Neutrophils % Lymphocytes % (Manual) Monocytes % (Manual) Eosinophils % (Manual) Basophils % (Manual) Metamyelocytes % Myelocytes % Toxic Granulation Anisocytosis Microcytosis ESR Puncture Site O2 Saturation ABG pH ABG pCO2 ABG pO2 ABG HCO3 ABG Total CO2 ABG Base Excess Danny Test O2 Delivery Device Oxygen Liter Flow FiO2 % Sodium 136.8 Potassium 3.93 Chloride 105.3 Carbon Dioxide 24.1 Anion Gap 11.33 BUN 12.9 Creatinine 0.54 L Estimated GFR (MDRD) 114.00 BUN/Creatinine Ratio 23.88 Glucose 152.9 H Calcium 9.28 Total Bilirubin 0.51 AST 21.1 ALT 20.5 Alkaline Phosphatase 88.6 Troponin I NT-Pro-B Natriuret Pep Total Protein 7.22 Albumin 3.87 Globulin 3.35 Albumin/Globulin Ratio 1.15 TSH Free T4 Index Thyroxine (T4) T3 Uptake D-Dimer Urine Color Light Urine Clarity Clear Urine pH 8.5 Ur Specific [place] 1.015 Urine Protein Negative Urine Glucose (UA) Negative Urine Ketones Negative Urine Blood Negative Urine Nitrite Negative Urine Bilirubin Negative Urine Urobilinogen 0.2 Ur Leukocyte Esterase Negative 11/08/19 11/08/19 11/09/19 04:50 04:50 05:00 WBC 19.51 H RBC 4.70 Hgb 12.8 Hct 40.3 MCV 85.7 MCH 27.2 MCHC 31.8 RDW Coeff of Derick 13.5 Plt Count 321 Immature Gran % (Auto) 1.0 Neut % (Auto) 88.3 H Lymph % (Auto) 8.4 L Allen % (Auto) 2.1 Eos % (Auto) 0.0 Baso % (Auto) 0.2 Neut # (Auto) 17.2 H Lymph # (Auto) 1.6 Allen # (Auto) 0.4 Eos # (Auto) 0.0 Baso # (Auto) 0.0 Immature Gran # (Auto) 0.2 Neutrophils % (Manual) Band Neutrophils % Lymphocytes % (Manual) Monocytes % (Manual) Eosinophils % (Manual) Basophils % (Manual) Metamyelocytes % Myelocytes % Toxic Granulation Anisocytosis Microcytosis ESR Puncture Site O2 Saturation ABG pH ABG pCO2 ABG pO2 ABG HCO3 ABG Total CO2 ABG Base Excess Danny Test O2 Delivery Device Oxygen Liter Flow FiO2 % Sodium 137.6 Potassium 3.97 Chloride 104.8 Carbon Dioxide 24.3 Anion Gap 12.47 BUN 20.2 H Creatinine 0.59 L Estimated GFR (MDRD) 103.00 BUN/Creatinine Ratio 34.23 Glucose 157.9 H Calcium 9.31 Total Bilirubin 0.32 AST 19.6 ALT 18.6 Alkaline Phosphatase 77.3 Troponin I NT-Pro-B Natriuret Pep Total Protein 7.09 Albumin 3.84 Globulin 3.25 Albumin/Globulin Ratio 1.18 TSH Free T4 Index Thyroxine (T4) T3 Uptake D-Dimer 194.73 Urine Color Urine Clarity Urine pH Ur Specific [place] Urine Protein Urine Glucose (UA) Urine Ketones Urine Blood Urine Nitrite Urine Bilirubin Urine Urobilinogen Ur Leukocyte Esterase 11/09/19 11/09/19 11/09/19 05:01 05:01 05:01 WBC 17.34 H RBC 4.33 Hgb 11.9 L Hct 37.5 MCV 86.6 MCH 27.5 MCHC 31.7 L RDW Coeff of Derick 13.6 Plt Count 287 Immature Gran % (Auto) 2.0 Neut % (Auto) 84.7 H Lymph % (Auto) 9.5 L Allen % (Auto) 3.7 Eos % (Auto) 0.0 Baso % (Auto) 0.1 Neut # (Auto) 14.7 H Lymph # (Auto) 1.6 Allen # (Auto) 0.7 Eos # (Auto) 0.0 Baso # (Auto) 0.0 Immature Gran # (Auto) 0.4 Neutrophils % (Manual) Band Neutrophils % Lymphocytes % (Manual) Monocytes % (Manual) Eosinophils % (Manual) Basophils % (Manual) Metamyelocytes % Myelocytes % Toxic Granulation Anisocytosis Microcytosis ESR 7 Puncture Site O2 Saturation ABG pH ABG pCO2 ABG pO2 ABG HCO3 ABG Total CO2 ABG Base Excess Danny Test O2 Delivery Device Oxygen Liter Flow FiO2 % Sodium 138.0 Potassium 3.79 Chloride 106.3 Carbon Dioxide 25.3 Anion Gap 10.19 BUN 18.9 H Creatinine 0.62 Estimated GFR (MDRD) 98.00 BUN/Creatinine Ratio 30.48 Glucose 140.1 H Calcium 8.55 Total Bilirubin 0.24 AST 18.5 ALT 16.3 Alkaline Phosphatase 62.1 Troponin I NT-Pro-B Natriuret Pep Total Protein 6.22 L Albumin 3.29 L Globulin 2.93 Albumin/Globulin Ratio 1.12 TSH Free T4 Index Thyroxine (T4) T3 Uptake D-Dimer Urine Color Urine Clarity Urine pH Ur Specific [place] Urine Protein Urine Glucose (UA) Urine Ketones Urine Blood Urine Nitrite Urine Bilirubin Urine Urobilinogen Ur Leukocyte Esterase 11/09/19 11/10/19 11/10/19 08:19 04:30 04:30 WBC 17.86 H RBC 4.95 Hgb 13.3 Hct 42.0 MCV 84.8 MCH 26.9 L MCHC 31.7 L RDW Coeff of Derick 13.4 Plt Count 305 Immature Gran % (Auto) Neut % (Auto) Lymph % (Auto) Allen % (Auto) Eos % (Auto) Baso % (Auto) Neut # (Auto) Lymph # (Auto) Allen # (Auto) Eos # (Auto) Baso # (Auto) Immature Gran # (Auto) Neutrophils % (Manual) 70.0 Band Neutrophils % 11.0 H Lymphocytes % (Manual) 11.0 Monocytes % (Manual) 3.0 Eosinophils % (Manual) 1.0 Basophils % (Manual) 0.0 Metamyelocytes % 3.0 H Myelocytes % 1.0 Toxic Granulation 1+ Anisocytosis Not present Microcytosis 1+ ESR Puncture Site Rrad O2 Saturation 93.0 L ABG pH 7.435 ABG pCO2 35.6 ABG pO2 64.0 L ABG HCO3 23.9 ABG Total CO2 25 ABG Base Excess 0 Danny Test + O2 Delivery Device Nc Oxygen Liter Flow 2.00 FiO2 % Sodium 137.4 Potassium 3.56 Chloride 103.8 Carbon Dioxide 24.0 Anion Gap 13.16 BUN 17.5 H Creatinine 0.67 Estimated GFR (MDRD) 89.00 BUN/Creatinine Ratio 26.11 Glucose 140.4 H Calcium 9.29 Total Bilirubin 0.41 AST 20.8 ALT 20.1 Alkaline Phosphatase 62.3 Troponin I NT-Pro-B Natriuret Pep Total Protein 7.13 Albumin 3.83 Globulin 3.30 Albumin/Globulin Ratio 1.16 TSH Free T4 Index Thyroxine (T4) T3 Uptake D-Dimer Urine Color Urine Clarity Urine pH Ur Specific [place] Urine Protein Urine Glucose (UA) Urine Ketones Urine Blood Urine Nitrite Urine Bilirubin Urine Urobilinogen Ur Leukocyte Esterase 11/10/19 11/10/19 11/11/19 04:30 04:30 08:28 WBC 14.75 H RBC 4.53 Hgb 12.3 Hct 37.9 MCV 83.7 MCH 27.2 MCHC 32.5 RDW Coeff of Derick 13.3 Plt Count 265 Immature Gran % (Auto) 1.8 Neut % (Auto) 80.3 H Lymph % (Auto) 12.1 Allen % (Auto) 5.6 Eos % (Auto) 0.1 Baso % (Auto) 0.1 Neut # (Auto) 11.9 H Lymph # (Auto) 1.8 Allen # (Auto) 0.8 Eos # (Auto) 0.0 Baso # (Auto) 0.0 Immature Gran # (Auto) 0.3 Neutrophils % (Manual) Band Neutrophils % Lymphocytes % (Manual) Monocytes % (Manual) Eosinophils % (Manual) Basophils % (Manual) Metamyelocytes % Myelocytes % Toxic Granulation Anisocytosis Microcytosis ESR 7 Puncture Site O2 Saturation ABG pH ABG pCO2 ABG pO2 ABG HCO3 ABG Total CO2 ABG Base Excess Danny Test O2 Delivery Device Oxygen Liter Flow FiO2 % Sodium Potassium Chloride Carbon Dioxide Anion Gap BUN Creatinine Estimated GFR (MDRD) BUN/Creatinine Ratio Glucose Calcium Total Bilirubin AST ALT Alkaline Phosphatase Troponin I NT-Pro-B Natriuret Pep Total Protein Albumin Globulin Albumin/Globulin Ratio TSH 0.987 Free T4 Index 1.4 Thyroxine (T4) 5.7 T3 Uptake 25 D-Dimer Urine Color Urine Clarity Urine pH Ur Specific [place] Urine Protein Urine Glucose (UA) Urine Ketones Urine Blood Urine Nitrite Urine Bilirubin Urine Urobilinogen Ur Leukocyte Esterase 11/11/19 08:28 WBC RBC Hgb Hct MCV MCH MCHC RDW Coeff of Derick Plt Count Immature Gran % (Auto) Neut % (Auto) Lymph % (Auto) Allen % (Auto) Eos % (Auto) Baso % (Auto) Neut # (Auto) Lymph # (Auto) Allen # (Auto) Eos # (Auto) Baso # (Auto) Immature Gran # (Auto) Neutrophils % (Manual) Band Neutrophils % Lymphocytes % (Manual) Monocytes % (Manual) Eosinophils % (Manual) Basophils % (Manual) Metamyelocytes % Myelocytes % Toxic Granulation Anisocytosis Microcytosis ESR Puncture Site O2 Saturation ABG pH ABG pCO2 ABG pO2 ABG HCO3 ABG Total CO2 ABG Base Excess Danny Test O2 Delivery Device Oxygen Liter Flow FiO2 % Sodium 136.1 Potassium 3.43 L Chloride 102.4 Carbon Dioxide 26.7 Anion Gap 10.43 BUN 17.4 H Creatinine 0.67 Estimated GFR (MDRD) 89.00 BUN/Creatinine Ratio 25.97 Glucose 105.9 Calcium 8.65 Total Bilirubin 0.46 AST 24.3 ALT 21.4 Alkaline Phosphatase 54.3 Troponin I NT-Pro-B Natriuret Pep Total Protein 6.01 L Albumin 3.27 L Globulin 2.74 Albumin/Globulin Ratio 1.19 TSH Free T4 Index Thyroxine (T4) T3 Uptake D-Dimer Urine Color Urine Clarity Urine pH Ur Specific [place] Urine Protein Urine Glucose (UA) Urine Ketones Urine Blood Urine Nitrite Urine Bilirubin Urine Urobilinogen Ur Leukocyte Esterase Follow-ups: PCP next week Discharge Disposition: Home Hospital Course: Adnutted through ER for respiratory symptom of dyspnea and congestion. Was administered antibiotics, RespTherapy, IV steroids. Refer to Record for specifics. Progressively improved and was discharged to home in stable and satisfactory condition Plan: Discharge to home
== END 2019-11-11 12:56 | disposition home or self-care (01) | DRG 204 ==
LOC: ED 10:58 → MEDSURG B 10:58 → INTOOBSV 16:50 → OBSVTOIN 16:50 → MEDSURG B 17:30
PROVIDERS: ADMIT Emergency Medicine; ATTEND Emergency Medicine
DX: R06.02 Shortness of breath; J44.1 Chronic obstructive pulmonary disease with (acute) exacerbation; E03.9 Hypothyroidism, unspecified; J20.9 Acute bronchitis, unspecified; J44.0 Chronic obstructive pulmonary disease with (acute) lower respiratory infection; R06.2 Wheezing